=== PATIENT | female | born 1975 | race Two or more races ===

== ENCOUNTER 2017-04-14 12:26 | Inpatient (IN) | payer OTHER ==
[2017-04-14 13:37] VITALS: BMI 17.3
--- NOTE | 2017-04-14 15:52 | HP ---
CIWA Score - CIWA Score Nausea/Vomitin Muscle Tremors: 4-Moderate,w/Arms Extend Anxiety: 4-Mod. Anxious/Guarded Agitation: 3 Paroxysmal Sweats: 3 Orientation: 0-Oriented Tacttile Disturbances: 2-Mild Itch/Numbness/Burn Auditory Disturbances: 0-None Visual Disturbances: 1-Very Mild Sensitivity Headache: 0-None Present CIWA-Ar Total Score: 22 Admission ROS S - HPI Chief Complaint: "I need some rest and to clear my head." Pt. is here to Detox from Alcohol. Allergies/Adverse Reactions: Allergies Allergy/AdvReac Type Severity Reaction Status Date / Time No Known Drug Allergies Allergy Verified 04/14/17 14:17 aspirin AdvReac Severe HEAVY Verified 04/14/17 14:17 MENSES Lactose Intolerant AdvReac Intermediate Nausea Uncoded 04/14/17 16:00 History of Present Illness: Pt. is a 41 YO female here to detox from Alcohol. Pt. has had 1 previous Detox admission and 1 previous Rehab admission at [facility] in the past. Longest recent period of sobriety: 1 year (@ age 36). Exam Limitations: No Limitations - Ebola screening Have you traveled outside of the country in the last 21 days: No Have you had contact with anyone from an Ebola affected area: No Have you been sick,other than usual withdrawal symptoms: No Do you have a fever: No - Review of Systems Constitutional: Chills, Diaphoresis, Fever, Loss of Appetite, Malaise, Night Sweats, Changes in sleep, Unintentional Wgt. Loss (Weight tends to fluctuate.) EENT: reports: Blurred Vision, Tearing, Hearing Loss (Partial in left ear.), Tinnitus (Left ear.), Nose Congestion, Sinus Pressure, Dental Problems (Cavities ; [place] tooth that needs to be removed.) Respiratory: reports: SOB with Exertion (Occasional.), Productive cough Cardiac: reports: Palpitations GI: reports: Diarrhea, Nausea, Poor Appetite, Vomiting, Indigestion, Abdominal cramping : reports: Frequency Musculoskeletal: reports: Back Pain, Joint Pain, Muscle Pain, Neck Pain, Joint Stiffness Integumentary: reports: No Symptoms Reported Neuro: reports: Numbness (Bilateral hands.), Seizure (Due to ETOH withdrawal; last episode: approx. 1 year ago.), Tingling (Bilateral hands.), Tremors Endocrine: reports: No Symptoms Reported Hematology: reports: Anemia (Iron-Deficieny Type.), Easy Bruising Psychiatric: reports: Judgement Intact, Mood/Affect Appropiate, Orientated x3, Anxious, Depressed (On meds.), other (Bipolar disorder, ADD, Schizophrenia.) Other Systems: Reviewed and Negative Patient History - Patient Medical History Hx Anemia: Yes (TAKES MULTIVITAMINS WITH IRON.) Hx Asthma: Yes (Uses Albuterol Inhaler.) Hx Chronic Obstructive Pulmonary Disease (COPD): No Hx Cancer: No Hx Cardiac Disorders: Yes (HTN.) Hx Congestive Heart Failure: No Hx Hypertension: Yes (Non-Compliant meds.) Hx Hypercholesterolemia: No Hx Pacemaker: No HX Cerebrovascular Accident: Yes (IN 2002--TREATED AT [facility]) Hx Seizures: Yes (alcohol related-last episode was apporx. 1 year ago.) Hx Dementia: No Hx Diabetes: No Hx Gastrointestinal Disorders: No Hx Liver Disease: Yes (Cirrhosis.) Hx Genitourinary Disorders: No Hx Sexually Transmitted Disorders: No Hx Renal Disease (ESRD): No Hx Thyroid Disease: No Hx Human Immunodeficiency Virus (HIV): No (Last Tested approx. 1 year ago: NEGATIVE.) Hx Hepatitis C: No (Never Tested.) Hx Depression: Yes (On med.) Hx Suicide Attempt: No (PATIENT DENIES CURRENT SI / HI.) Hx Bipolar Disorder: Yes (On med.) Hx Schizophrenia: Yes (On med.) Other Medical History: Hep B (years ago, pt reports she since cleared virus); Uterine Fibroids. - Patient Surgical History Past Surgical History: Yes Hx Neurologic Surgery: No Hx Cataract Extraction: No Hx Cardiac Surgery: No Hx Lung Surgery: No Hx Breast Surgery: No Hx Breast Biopsy: No Hx Abdominal Surgery: No Hx Appendectomy: No Hx Cholecystectomy: No Hx Genitourinary Surgery: No Hx Section: No Hx Orthopedic Surgery: No Other Surgical History: Removal of Uterine Fibroid - 2013; 2 Abortions (during 20's). Anesthesia Reaction: No - PPD History Previous Implant?: Yes Documented Results: Negative w/proof Implanted On Prior [facility] Admission?: Yes Date: 12/27/14 Results: 0 mm PPD to be Administered?: Yes - Reproductive History Patient is a Female of Child Bearing Age (11 -55 yrs old): Yes Last Menstrual Period: 03/13/17 Patient : No - Smoking Cessation Smoking history: Current every day smoker Have you smoked in the past 12 months: Yes Aproximately how many cigarettes per day: 5 Cigars Per Day: 0 Hx Chewing Tobacco Use: No Initiated information on smoking cessation: Yes 'Breaking Loose' booklet given: 04/14/17 (GIVE ON UNIT.) - Substance & Tx. History Hx Alcohol Use: Yes Hx Substance Use: Yes Substance Use Type: Alcohol, Cocaine Hx Substance Use Treatment: Yes (1 Previous Detox admission, 1 Previous Rehab admission at [facility].) - Substances Abused Cocaine Route: Inhalation Frequency: Daily Amount used: $100 Age of first use: 17 Date of Last Use: 04/12/17 Alcohol-beer/vodka Route: Oral Frequency: Daily Amount used: 1-6 pk. (24 oz.)/2 pts. Age of first use: 14 Date of Last Use: 04/13/17 Family Disease History - Family Disease History Family Disease History: Heart Disease: Mother (OPEN HEART SX, SUBSTANCE ABUSE. .), CA: Grandparent (BREAST--), Other: Father (AIDS; SUBSTANCE ABUSE; .), Mother Admission Physical Exam S - Vital Signs Vital Signs: Vital Signs - 24 hr 04/14/17 13:35 Temperature 99.6 F Pulse Rate 110 H Respiratory 16 Rate Blood Pressure 123/83 - Physical General Appearance: Yes: Nourished, Appropriately Dressed, Moderate Distress, Tremorous, Irritable, Anxious HEENTM: Yes: Hearing grossly Normal, Normocephalic, Normal Voice, ARMAND, Pharynx Normal Respiratory: Yes: Chest Non-Tender, Lungs Clear, No Respiratory Distress Neck: Yes: No masses,lesions,Nodules, Supple, Trachea in good position Breast: Yes: Breast Exam Deferred Cardiology: Yes: Regular Rhythm, Regular Rate, S1, S2, Tachycardia Abdominal: Yes: Normal Bowel Sounds, Non Tender, Flat, Soft Genitourinary: Yes: Frequency Back: Yes: Decreased Range of Motion Musculoskeletal: Yes: Gait Steady, Back pain, Joint Stiffness, Muscle Pain Extremities: Yes: Tremors 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: Yes: Fully Oriented, Alert, Normal Mood/Affect, Normal Response, Numbness (Bilateral Hands.) Integumentary: Yes: Normal Color, Dry, Warm Lymphatic: Yes: Within Normal Limits - Diagnostic (1) Asthma Current Visit: Yes Status: Chronic (2) HTN (hypertension) Current Visit: Yes Status: Chronic Qualifiers: Hypertension type: essential hypertension Qualified Code(s): I10 - Essential (primary) hypertension (3) Nicotine dependence Current Visit: Yes Status: Chronic Qualifiers: Nicotine product type: cigarettes Substance use status: uncomplicated Qualified Code(s): F17.210 - Nicotine dependence, cigarettes, uncomplicated (4) Alcohol dependence with uncomplicated withdrawal Current Visit: Yes Status: Acute (5) Cocaine dependence, uncomplicated Current Visit: Yes Status: Acute (6) History of seizure Current Visit: Yes Status: Chronic Comment: Due to Alcohol-withdrawal. (7) History of uterine fibroid Current Visit: Yes Status: Chronic (8) History of anemia Current Visit: Yes Status: Chronic (9) Bipolar disorder Current Visit: Yes Status: Chronic Qualifiers: Active/Remission status: remission status unspecified Qualified Code (s): F31.9 - Bipolar disorder, unspecified (10) Schizophrenia Current Visit: Yes Status: Chronic Qualifiers: Schizophrenia type: unspecified Qualified Code(s): F20.9 - Schizophrenia, unspecified Cleared for Admission [facility] - Detox or Rehab [facility] Level of Care: Medically Managed Detox Regimen/Protocol: Librium [facility] Breath Alcohol Content Breath Alcohol Content: 0.068 Urine Pregancy Test - Result Urine Test Results: Negative- NO Line Present Urine Drug Screen - Results Drug Screen Negative: No Urine Drug Screen Results: BZO-Benzodiazepines
[2017-04-14] MEDS ORDERED: MAGNESIUM HYDROX 2400MG/30ML ORAL SUSPENSION 30 ML CUP PO PRN (16:40)
[2017-04-14] MEDS ORDERED: ACETAMINOPHEN 325 MG TABLET (FP) PO PRN (16:40)
[2017-04-14] MEDS ORDERED: MENTHOL/PHENOL 1 EACH UD MM PRN (16:40)
[2017-04-14] MEDS ORDERED: diphenhydrAMINE HCL 50 MG CAPSULE PO PRN (16:40)
[2017-04-14] MEDS ORDERED: NICOTINE POLACRILEX 2 MG GUM BC PRN (16:40)
[2017-04-14] MEDS ORDERED: guaiFENesin/D-METHORPHAN HB 10 ML UNIT-DOSE CUPS PO PRN (16:40)
[2017-04-14] MEDS ORDERED: P-EPHED 60MG/TRIPROLIDI 2.5MG TABLET PO PRN (16:40)
[2017-04-14] MEDS ORDERED: MAGNESIUM CITRATE 300 ML BOTTLE PO PRN (16:40)
[2017-04-14] MEDS ORDERED: MAG HYDROX/AL HYDROX/SIMETH 30 ML UNIT-DOSE CUP PO PRN (16:40)
[2017-04-14] MEDS ORDERED: ALBUTEROL SO4 6.7 GM HFA INHALER IH PRN (16:51)
[2017-04-14] MEDS ORDERED: chlordiazePOXIDE HCL 25 MG CAPSULE PO ONE (17:30)
[2017-04-14] MEDS: cloNIDine HCL 0.1 MG TABLET PO SCH (17:32)
[2017-04-14] MEDS: NICOTINE 14 MG/24 HOURS TOPICAL PATCH TD SCH (17:36)
[2017-04-14] MEDS: chlordiazePOXIDE HCL 25 MG CAPSULE PO SCH ×2 (17:37→22:34)
[2017-04-14] MEDS: THIAMINE HCL 100 MG TABLET (FP) PO SCH (22:33)
[2017-04-15 02:34] LABS: URINE APPEARANCE CLEAR; URINE BILIRUBIN NEGATIVE (NEGATIVE); URINE BLOOD NEGATIVE (NEGATIVE); URINE COLOR YELLOW; URINE GLUCOSE (UA) NEGATIVE (NEGATIVE); URINE KETONE NEGATIVE (NEGATIVE); URINE LEUK ESTERASE NEGATIVE (NEGATIVE); URINE NITRITE NEGATIVE (NEGATIVE); URINE PROTEIN NEGATIVE (NEGATIVE); URINE UROBILINOGEN NEGATIVE E.U./dl (0.2-1.0)
[2017-04-15] MEDS: chlordiazePOXIDE HCL 25 MG CAPSULE PO SCH ×4 (05:56→22:13)
--- NOTE | 2017-04-15 09:32 | CONSULT ---
[facility] Psychiatric Consult - Data Date of interview: 04/15/17 Admission source: [facility] Identifying data: This is 41 years old female with history of Bipollar disorder , unclear psychiatric hospitalization history intoxicated with: Alcohol, Cocaine and Nicotine Substance Abuse History: - Substance & Tx. History. Hx Alcohol Use: Yes. Hx Substance Use: Yes. Substance Use Type: Alcohol, Cocaine. Hx Substance Use Treatment: Yes (1 Previous Detox admission, 1 Previous Rehab admission at [facility].) . - Substances Abused. Cocaine. Route: Inhalation. Frequency: Daily. Amount used: $100. Age of first use: 17. Date of Last Use: 04/12/17. Alcohol-beer/vodka. Route: Oral. Frequency: Daily. Amount used: 1-6 pk. (24 oz.)/2 pts. Age of first use: 14. Date of Last Use: 04/13/17 Medical History: Asthma, Anemia history, Seizure history, HTN Psychiatric History: Patiemnt reports history of Bipolar Disorder, reports taking prior to admission: Seroquel 300mg po qhs. Vistaril 25mg po bid. 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 Vistaril 25mg po bid Mental Status Exam - Mental Status Exam Alert and Oriented to: Person Cognitive Function: Fair Patient Appearance: Unkempt Mood: Sad Affect: Mood Congruent Patient Behavior: Cooperative Voice Loudness: Mildly Soft/Quiet Thought Process: Circumstantial Thought Disorder: Being Controlled Hallucinations: Denies Suicidal Ideation: Denies Homicidal Ideation: Denies Insight/Judgement: Fair Sleep: Difficulty falling asleep Appetite: Weight loss Muscle strength/Tone: Mild Hypotonicity Gait/Station: Shuffling Additional Comments: Seroquel 300mg po qhs. Vistaril 25mg po bid Psychiatric Findings - Problem List ([place] 1, 2,3) (1) Alcohol dependence with uncomplicated withdrawal Current Visit: Yes Status: Acute (2) Cocaine dependence, uncomplicated Current Visit: Yes Status: Acute (3) Bipolar disorder Current Visit: Yes Status: Chronic Qualifiers: Active/Remission status: remission status unspecified Qualified Code (s): F31.9 - Bipolar disorder, unspecified (4) History of seizure Current Visit: Yes Status: Chronic Comment: Due to Alcohol-withdrawal. (5) Schizophrenia Current Visit: Yes Status: Suspected Qualifiers: Schizophrenia type: unspecified Qualified Code(s): F20.9 - Schizophrenia, unspecified (6) Alcohol dependence Current Visit: No Status: Active (7) Cocaine dependence Current Visit: No Status: Active (8) Bipolar II disorder Current Visit: No Status: Acute - Initial Treatment Plan Initial Treatment Plan: Seroquel 300mg po qhs. Vistaril 25mg po bid
--- NOTE | 2017-04-15 09:39 | PN ---
[facility] CIWA - CIWA Score Nausea/Vomitin Muscle Tremors: 3 Anxiety: 3 Agitation: 2 Paroxysmal Sweats: 3 Orientation: 0-Oriented Tacttile Disturbances: 2-Mild Itch/Numbness/Burn Auditory Disturbances: 0-None Visual Disturbances: 0-None Headache: 0-None Present CIWA-Ar Total Score: 16 [facility] Progress Note (SOAP) Subjective: interrupted sleep, sweats, shakes, diarrhea Objective: 04/15/17 09:39 Vital Signs Temperature 99.0 F 04/15/17 06:00 Pulse Rate 71 04/15/17 06:00 Respiratory Rate 16 04/15/17 06:00 Blood Pressure 135/89 04/15/17 06:00 O2 Sat by Pulse Oximetry (%) Laboratory Tests 04/15/17 00:26 Urine Color Yellow Urine Appearance Clear Urine pH 5.0 Urine Protein Negative Urine Glucose (UA) Negative Urine Ketones Negative Urine Blood Negative Urine Nitrite Negative Urine Bilirubin Negative Urine Urobilinogen Negative Ur Leukocyte Esterase Negative 04/15/17 12:25 Laboratory Tests 04/14/17 04/15/17 04/15/17 06:00 00:26 06:00 WBC 3.3 L D RBC 3.89 Hgb 12.2 Hct 37.0 MCV 95.2 MCHC 33.1 RDW 13.7 Plt Count 194 MPV 9.0 Sickle Cell Screen Negative Sodium Potassium Chloride Carbon Dioxide Anion Gap BUN Creatinine Creat Clearance w eGFR Random Glucose Calcium Total Bilirubin AST ALT Alkaline Phosphatase Total Protein Albumin Urine Color Yellow Urine Appearance Clear Urine pH 5.0 Ur Specific [place] 1.025 Urine Protein Negative Urine Glucose (UA) Negative Urine Ketones Negative Urine Blood Negative Urine Nitrite Negative Urine Bilirubin Negative Urine Urobilinogen Negative Ur Leukocyte Esterase Negative RPR Titer HIV 1&2 Antibody Screen Negative HIV P24 Antigen Negative 04/15/17 04/15/17 06:00 06:00 WBC RBC Hgb Hct MCV MCHC RDW Plt Count MPV Sickle Cell Screen Sodium 139 Potassium 3.8 Chloride 102 Carbon Dioxide 29 Anion Gap 8 BUN 6 L D Creatinine 0.5 L D Creat Clearance w eGFR > 60 Random Glucose 67 L Calcium 8.8 Total Bilirubin 0.8 D AST 159 H D ALT 52 D Alkaline Phosphatase 102 D Total Protein 8.5 H Albumin 3.6 Urine Color Urine Appearance Urine pH Ur Specific [place] Urine Protein Urine Glucose (UA) Urine Ketones Urine Blood Urine Nitrite Urine Bilirubin Urine Urobilinogen Ur Leukocyte Esterase RPR Titer Nonreactive HIV 1&2 Antibody Screen HIV P24 Antigen pt aox3 lying in bed Assessment: 04/15/17 09:39 withdrawal sx's elevated transaminases 04/15/17 12:26 Plan: cont. detox increase fluids d/c tylenol repeat sgot/sgpt imodium prn
[2017-04-15] MEDS: cloNIDine HCL 0.1 MG TABLET PO SCH (10:10)
[2017-04-15] MEDS: PRENATAL VITAMINS W/ FOLIC ACID TABLET (FP) PO SCH (10:10)
[2017-04-15] MEDS: hydrOXYzine PAMOATE 25 MG CAPSULE (FP) PO SCH ×2 (10:11→22:13)
[2017-04-15] MEDS: NICOTINE 14 MG/24 HOURS TOPICAL PATCH TD SCH (10:12)
[2017-04-15] MEDS: LOPERAMIDE HCL 2 MG CAPSULE PO PRN (10:13)
[2017-04-15 10:22] LABS: MCH 31.5 pg (25.7-33.7); MCHC 33.1 g/dl (32.0-36.0); MEAN CELL VOLUME 95.2 fl (80-96); PLATELET COUNT 194 K/MM3 (134-434); RDW 13.7 % (11.6-15.6); WHITE BLOOD COUNT 3.3 K/mm3 (4.0-10.0)
[2017-04-15 10:41] LABS: HIV 1 & 2 AB NEGATIVE; HIV 1 AGp24 NEGATIVE
[2017-04-15 10:49] LABS: ALBUMIN 3.6 g/dl (3.4-5.0); ANION GAP 8 (8-16); CALCIUM 8.8 mg/dL (8.5-10.1); CO2 29 mmol/L (21-32); GLUCOSE,RANDOM 67 mg/dL (74-106)
[2017-04-15 10:54] LABS: ALK PHOS 102 U/L (45-117); BILIRUBIN,TOTAL 0.8 mg/dL (0.2-1.0); CREATININE 0.5 mg/dL (0.55-1.02); SGOT/AST 159 U/L (15-37); SGPT/ALT 52 U/L (12-78); TOT PROT 8.5 g/dl (6.4-8.2)
[2017-04-15 11:00] LABS: SICKLE CELL SCREEN NEGATIVE (NEGATIVE)
--- NOTE | 2017-04-15 15:51 | EKG ---
Test Reason : Blood Pressure : / mmHG Vent. Rate : 109 BPM Atrial Rate : 109 BPM P-R Int : 132 ms QRS Dur : 072 ms QT Int : 334 ms P-R-T Axes : 069 020 055 degrees QTc Int : 449 ms SINUS TACHYCARDIA SEPTAL INFARCT , AGE UNDETERMINED ABNORMAL ECG NO PREVIOUS ECGS AVAILABLE Confirmed by FABIOLA SOLORIO MD ([id number]) on 04/15/2017 3:51:07 PM Referred By: Confirmed By:FABIOLA SOLORIO MD
[2017-04-15] MEDS: hydrOXYzine PAMOATE 50 MG CAPSULE (FP) PO PRN (16:05)
[2017-04-15] MEDS ORDERED: QUEtiapine FUMARATE 300 MG TABLET PO SCH (22:00)
[2017-04-15] MEDS: THIAMINE HCL 100 MG TABLET (FP) PO SCH (22:12)
[2017-04-16] MEDS: chlordiazePOXIDE HCL 25 MG CAPSULE PO PRN ×2 (01:25→14:47)
[2017-04-16] MEDS: chlordiazePOXIDE HCL 25 MG CAPSULE PO SCH ×2 (05:37→10:46)
[2017-04-16] MEDS: hydrOXYzine PAMOATE 50 MG CAPSULE (FP) PO PRN ×2 (07:25→14:47)
[2017-04-16 10:20] LABS: SGOT/AST 80 U/L (15-37); SGPT/ALT 41 U/L (12-78)
[2017-04-16] MEDS: cloNIDine HCL 0.1 MG TABLET PO SCH (10:46)
[2017-04-16] MEDS: hydrOXYzine PAMOATE 25 MG CAPSULE (FP) PO SCH ×2 (10:46→22:06)
[2017-04-16] MEDS: PRENATAL VITAMINS W/ FOLIC ACID TABLET (FP) PO SCH (10:46)
[2017-04-16] MEDS: NICOTINE 14 MG/24 HOURS TOPICAL PATCH TD SCH (10:46)
--- NOTE | 2017-04-16 14:35 | PN ---
[facility] Progress Note Note: Patient was seen today due to sedation from Seroquel 300 mg, reviewed the chart and medications with the patient, patient reports that she does not want to continue Seroquel and asked Ambien for sleep. Will d/c Seroquel, add Ambien 10 mg po hs.
--- NOTE | 2017-04-16 16:04 | PN ---
[facility] CIWA - CIWA Score Nausea/Vomitin-No Nausea/No Vomiting Muscle Tremors: 4-Moderate,w/Arms Extend Anxiety: 4-Mod. Anxious/Guarded Agitation: 3 Paroxysmal Sweats: 3 Orientation: 0-Oriented Tacttile Disturbances: 0-None Auditory Disturbances: 0-None Visual Disturbances: 0-None Headache: 0-None Present CIWA-Ar Total Score: 14 S Progress Note (SOAP) Subjective: Tremors,sweating,interrupted sleep,restless,anxiety Objective: 04/16/17 16:03 Vital Signs - 8 hr 04/16/17 04/16/17 10:00 14:00 Temperature 98.1 F 98.4 F Pulse Rate 110 H 99 H Respiratory 20 16 Rate Blood Pressure 117/72 96/73 Laboratory Last Values WBC 3.3 K/mm3 (4.0-10.0) L D 04/15/17 06:00 RBC 3.89 M/mm3 (3.60-5.2) 04/15/17 06:00 Hgb 12.2 GM/dL (10.7-15.3) 04/15/17 06:00 Hct 37.0 % (32.4-45.2) 04/15/17 06:00 MCV 95.2 fl (80-96) 04/15/17 06:00 MCHC 33.1 g/dl (32.0-36.0) 04/15/17 06:00 RDW 13.7 % (11.6-15.6) 04/15/17 06:00 Plt Count 194 K/MM3 (134-434) 04/15/17 06:00 MPV 9.0 fl (7.5-11.1) 04/15/17 06:00 Sickle Cell Screen Negative (NEGATIVE) 04/15/17 06:00 Sodium 139 mmol/L (136-145) 04/15/17 06:00 Potassium 3.8 mmol/L (3.5-5.1) 04/15/17 06:00 Chloride 102 mmol/L (98-107) 04/15/17 06:00 Carbon Dioxide 29 mmol/L (21-32) 04/15/17 06:00 Anion Gap 8 (8-16) 04/15/17 06:00 BUN 6 mg/dL (7-18) L D 04/15/17 06:00 Creatinine 0.5 mg/dL (0.55-1.02) L D 04/15/17 06:00 Creat Clearance w eGFR > 60 (>60) 04/15/17 06:00 Random Glucose 67 mg/dL (74-106) L 04/15/17 06:00 Calcium 8.8 mg/dL (8.5-10.1) 04/15/17 06:00 Total Bilirubin 0.8 mg/dL (0.2-1.0) D 04/15/17 06:00 AST 80 U/L (15-37) H D 04/16/17 07:00 ALT 41 U/L (12-78) D 04/16/17 07:00 Alkaline Phosphatase 102 U/L (45-117) D 04/15/17 06:00 Total Protein 8.5 g/dl (6.4-8.2) H 04/15/17 06:00 Albumin 3.6 g/dl (3.4-5.0) 04/15/17 06:00 Urine Color Yellow 04/15/17 00:26 Urine Appearance Clear 04/15/17 00:26 Urine pH 5.0 (5.0-8.0) 04/15/17 00:26 Ur Specific [place] 1.025 (1.005-1.025) 04/15/17 00:26 Urine Protein Negative (NEGATIVE) 04/15/17 00:26 Urine Glucose (UA) Negative (NEGATIVE) 04/15/17 00:26 Urine Ketones Negative (NEGATIVE) 04/15/17 00:26 Urine Blood Negative (NEGATIVE) 04/15/17 00:26 Urine Nitrite Negative (NEGATIVE) 04/15/17 00:26 Urine Bilirubin Negative (NEGATIVE) 04/15/17 00:26 Urine Urobilinogen Negative E.U./dl (0.2-1.0) 04/15/17 00:26 Ur Leukocyte Esterase Negative (NEGATIVE) 04/15/17 00:26 RPR Titer Nonreactive (NONREACTIVE) 04/15/17 06:00 HIV 1&2 Antibody Screen Negative 04/14/17 06:00 HIV P24 Antigen Negative 04/14/17 06:00 labs noted Assessment: 04/16/17 16:03 Withdrawal sx. Plan: Continue detox
[2017-04-16] MEDS: chlordiazePOXIDE 5 MG CAPSULE PO SCH ×2 (17:30→22:06)
[2017-04-16] MEDS: THIAMINE HCL 100 MG TABLET (FP) PO SCH (22:06)
[2017-04-16] MEDS: ZOLPIDEM TARTRATE 10 MG TABLET (PARK CARE ONLY) PO PRN (22:06)
[2017-04-17] MEDS: chlordiazePOXIDE HCL 25 MG CAPSULE PO PRN (02:57)
[2017-04-17] MEDS: chlordiazePOXIDE 5 MG CAPSULE PO SCH ×2 (05:18→10:21)
[2017-04-17] MEDS: hydrOXYzine PAMOATE 25 MG CAPSULE (FP) PO SCH ×2 (09:10→22:15)
[2017-04-17] MEDS: LOPERAMIDE HCL 2 MG CAPSULE PO PRN (09:13)
[2017-04-17] MEDS: cloNIDine HCL 0.1 MG TABLET PO SCH (10:20)
[2017-04-17] MEDS: PRENATAL VITAMINS W/ FOLIC ACID TABLET (FP) PO SCH (10:20)
[2017-04-17] MEDS: NICOTINE 14 MG/24 HOURS TOPICAL PATCH TD SCH (10:21)
--- NOTE | 2017-04-17 11:38 | PN ---
[facility] Progress Note (SOAP) Subjective: ALERT,IRRITABLE,ANXIOUS,INTERRUPTED SLEEP, Objective: 04/17/17 11:37 Vital Signs Temperature 98.6 F 04/17/17 10:21 Pulse Rate 97 H 04/17/17 10:21 Respiratory Rate 20 04/17/17 10:21 Blood Pressure 121/95 04/17/17 10:21 O2 Sat by Pulse Oximetry (%) 04/17/17 11:37 Assessment: 04/17/17 11:37 WITHDRAWAL SYMPTOM Plan: CONTINUE DETOX
[2017-04-17] MEDS: hydrOXYzine PAMOATE 50 MG CAPSULE (FP) PO PRN (13:25)
[2017-04-17] MEDS: chlordiazePOXIDE HCL 10 MG CAPSULE PO SCH ×2 (16:47→22:15)
[2017-04-17] MEDS: ZOLPIDEM TARTRATE 10 MG TABLET (PARK CARE ONLY) PO PRN (22:15)
[2017-04-17] MEDS: THIAMINE HCL 100 MG TABLET (FP) PO SCH (22:15)
[2017-04-18] MEDS: hydrOXYzine PAMOATE 50 MG CAPSULE (FP) PO PRN (02:20)
[2017-04-18] MEDS: chlordiazePOXIDE HCL 10 MG CAPSULE PO SCH (05:46)
[2017-04-18 06:03] VITALS: BP 117/75; PULSE 77; TEMP 97.1
[2017-04-18] MEDS: PRENATAL VITAMINS W/ FOLIC ACID TABLET (FP) PO SCH (09:03)
[2017-04-18] MEDS: hydrOXYzine PAMOATE 25 MG CAPSULE (FP) PO SCH (09:03)
[2017-04-18] MEDS: cloNIDine HCL 0.1 MG TABLET PO SCH (09:03)
[2017-04-18] MEDS: NICOTINE 14 MG/24 HOURS TOPICAL PATCH TD SCH (09:04)
--- NOTE | 2017-04-18 13:09 | DS ---
[facility] Detox Discharge Summary Admission Date: 04/14/17 Discharge Date: 04/18/17 - History Present History: Alcohol Dependence, Cocaine Dependence Additional Comments: ADVISED PATIENT TO FOLLOW-UP WITH [facility] / REHAB MEDICAL PROVIDER AFTER DISCHARGE FROM [facility]. Pertinent Past History: Asthma, HTN, History of Anemia, History of CVA, History of Seizure (ETOH-Related ), History of Hep B, Schizophrenia, Depression, Bipolar disorder. - Physical Exam Results Vital Signs: Vital Signs Temperature 97.1 F L 04/18/17 06:00 Pulse Rate 77 04/18/17 06:00 Respiratory Rate 20 04/18/17 06:00 Blood Pressure 117/75 04/18/17 06:00 O2 Sat by Pulse Oximetry (%) Pertinent Admission Physical Exam Findings: WITHDRAWAL SYMPTOMS. Laboratory Tests 04/14/17 04/15/17 04/15/17 06:00 00:26 06:00 WBC 3.3 L D RBC 3.89 Hgb 12.2 Hct 37.0 MCV 95.2 MCHC 33.1 RDW 13.7 Plt Count 194 MPV 9.0 Sickle Cell Screen Negative Sodium Potassium Chloride Carbon Dioxide Anion Gap BUN Creatinine Creat Clearance w eGFR Random Glucose Calcium Total Bilirubin AST ALT Alkaline Phosphatase Total Protein Albumin Urine Color Yellow Urine Appearance Clear Urine pH 5.0 Ur Specific [place] 1.025 Urine Protein Negative Urine Glucose (UA) Negative Urine Ketones Negative Urine Blood Negative Urine Nitrite Negative Urine Bilirubin Negative Urine Urobilinogen Negative Ur Leukocyte Esterase Negative RPR Titer HIV 1&2 Antibody Screen Negative HIV P24 Antigen Negative 04/15/17 04/15/17 04/16/17 06:00 06:00 07:00 WBC RBC Hgb Hct MCV MCHC RDW Plt Count MPV Sickle Cell Screen Sodium 139 Potassium 3.8 Chloride 102 Carbon Dioxide 29 Anion Gap 8 BUN 6 L D Creatinine 0.5 L D Creat Clearance w eGFR > 60 Random Glucose 67 L Calcium 8.8 Total Bilirubin 0.8 D AST 159 H D 80 H D ALT 52 D 41 D Alkaline Phosphatase 102 D Total Protein 8.5 H Albumin 3.6 Urine Color Urine Appearance Urine pH Ur Specific [place] Urine Protein Urine Glucose (UA) Urine Ketones Urine Blood Urine Nitrite Urine Bilirubin Urine Urobilinogen Ur Leukocyte Esterase RPR Titer Nonreactive HIV 1&2 Antibody Screen HIV P24 Antigen LABS NOTED. - Treatment Hospital Course: Detox Protocol Followed, Detoxed Safely, Responded well, Discharged Condition Good Patient has Accepted a Rehab Referral to: PATIENT GOING HOME. 12-STEP / AA OUTPATIENT PROGRAMS RECOMMENDED. - Medication Discharge Medications: Ambulatory Orders Ibuprofen [Motrin] 800 mg PO PRN PRN 10/10/13 Albuterol Sulfate Inhaler - [Ventolin Hfa Inhaler -] 2 inh PO Q4H PRN 04/14/17 Citalopram Hydrobromide [Celexa -] 20 mg PO DAILY 04/14/17 Clonidine HCl [Catapres -] 0.1 mg PO DAILY 04/14/17 Metoprolol Succinate [Toprol Xl -] 50 mg PO DAILY 04/14/17 Quetiapine Fumarate [Seroquel -] 300 mg PO HS 04/14/17 Quetiapine Fumarate [Seroquel -] 300 mg PO HS #30 tab 04/15/17 - Diagnosis (1) Asthma Status: Chronic (2) HTN (hypertension) Status: Chronic Qualifiers: Hypertension type: essential hypertension Qualified Code(s): I10 - Essential (primary) hypertension (3) Nicotine dependence Status: Chronic Qualifiers: Nicotine product type: cigarettes Substance use status: uncomplicated Qualified Code(s): F17.210 - Nicotine dependence, cigarettes, uncomplicated (4) Alcohol dependence with uncomplicated withdrawal Status: Acute (5) Cocaine dependence, uncomplicated Status: Acute (6) History of seizure Status: Chronic (7) History of uterine fibroid Status: Chronic (8) History of anemia Status: Chronic (9) Bipolar disorder Status: Chronic Qualifiers: Active/Remission status: remission status unspecified Qualified Code (s): F31.9 - Bipolar disorder, unspecified (10) Schizophrenia Status: Suspected Qualifiers: Schizophrenia type: unspecified Qualified Code(s): F20.9 - Schizophrenia, unspecified (11) Bipolar II disorder Status: Acute - AMA Did Patient Leave Against Medical Advice: No
== END 2017-04-18 09:28 | disposition home or self-care (01) | DRG 774 ==
LOC: YASAS 12:26 → Y6N 15:00
PROVIDERS: ADMIT Internal Medicine; ATTEND Internal Medicine
PROC: HZ2ZZZZ Detoxification Services for Substance Abuse Treatment (ICD-10-PCS; principal; 2017-04-18)
DX: F10.230 Alcohol dependence with withdrawal, uncomplicated (principal); F14.20 Cocaine dependence, uncomplicated; F17.210 Nicotine dependence, cigarettes, uncomplicated; F20.9 Schizophrenia, unspecified; F31.9 Bipolar disorder, unspecified; F31.81 Bipolar II disorder; G40.509 Epileptic seizures related to external causes, not intractable, without status epilepticus; I10 Essential (primary) hypertension; J45.909 Unspecified asthma, uncomplicated; Z87.42 Personal history of other diseases of the female genital tract; Z86.2 Personal history of diseases of the blood and blood-forming organs and certain disorders involving the immune mechanism; Z59.0 Homelessness
CPT/HCPCS: 36415; 80053; 81003; 84450; 84460; 85027; 85660; 86593; 87389; 93005; 93010

== ENCOUNTER 2018-02-09 19:53 | Emergency (ER) | payer OTHER ==
--- NOTE | 2018-02-09 20:00 | PDOC ---
Rapid Medical Evaluation Chief Complaint: Alcohol intoxication Time Seen by Provider: 02/09/18 19:59 Medical Evaluation: Allergies Allergy/AdvReac Type Severity Reaction Status Date / Time No Known Drug Allergies Allergy Verified 04/14/17 14:17 aspirin AdvReac Severe HEAVY Verified 04/14/17 14:17 MENSES lactose AdvReac Intermediate Nausea Verified 04/14/17 17:11 Lactose Intolerant AdvReac Intermediate Nausea Uncoded 04/14/17 16:00 02/09/18 19:59 I have performed a brief in-person evaluation of this patient. The patient presents with a chief complaint of: alcohol intox, sent in from [facility] Pertinent physical exam findings: intox, agitated, tachy to 120 I have ordered the following: labs The patient will proceed to the ED for further evaluation. Discharge Disposition - Diagnosis Alcohol dependence - Referrals - Patient Instructions - Post Discharge Activity
[2018-02-09 20:03] VITALS: BMI 22.3
[2018-02-09] MEDS ORDERED: PANTOPRAZOLE SODIUM 40 MG VIAL IVPUSH ONE (22:08)
[2018-02-09] MEDS ORDERED: FOLIC ACID INJECTION - 1 MG, THIAMINE HCL 100 MG, MULTIVIT INJECTION ADULT 10 ML in SOD... IVPB ONE (22:08)
--- NOTE | 2018-02-09 22:25 | PDOC ---
*Physical Exam - Vital Signs Last Vital Signs Temp Pulse Resp BP Pulse Ox 98.0 F 120 H 16 129/81 100 02/09/18 20:00 02/09/18 20:00 02/09/18 20:00 02/09/18 20:00 02/09/18 20:00 Medical Decision Making - Medical Decision Making 02/09/18 22:28 agree with care DILAN Miller *DC/Admit/Observation/Transfer Diagnosis at time of Disposition: Alcohol dependence - Referrals - Patient Instructions - Post Discharge Activity
[2018-02-09 23:53] LABS: URINE APPEARANCE CLOUDY; URINE BILIRUBIN NEGATIVE (<2.0 mg/dL); URINE BLOOD 3+ (NEGATIVE); URINE COLOR LTYELLOW; URINE GLUCOSE (UA) NEGATIVE (NEGATIVE); URINE KETONE NEGATIVE (NEGATIVE); URINE LEUK ESTERASE NEGATIVE (NEGATIVE); URINE NITRITE POSITIVE (NEGATIVE); URINE PROTEIN 1+ (NEGATIVE); URINE UROBILINOGEN NEGATIVE mg/dL (0.2-1.0)
[2018-02-09 23:56] LABS: EPI CELLS RARE /HPF (FEW); URINE BACTERIA MODERATE /hpf (NONE SEEN)
[2018-02-09 23:57] LABS: AMORP URATES FEW /hpf (NONE SEEN)
[2018-02-10 00:29] LABS: HCG,QUALITATIVE URINE INDETERMINATE
[2018-02-10 00:48] LABS: BASO % 0.8 % (0-2.0); HEMATOCRIT 36.9 % (32.4-45.2); HEMOGLOBIN 12.6 GM/dL (10.7-15.3); LYMPH % 52.3 % (8-40); MCH 30.7 pg (25.7-33.7); MCHC 34.1 g/dl (32.0-36.0); MEAN CELL VOLUME 90.1 fl (80-96); MEAN PLT VOLUME 7.9 fl (7.5-11.1); MONO % 12.5 % (3.8-10.2); NEUT % 33.4 % (42.8-82.8); PLATELET COUNT 167 K/MM3 (134-434); WHITE BLOOD COUNT 2.7 K/mm3 (4.0-10.0)
[2018-02-10 01:12] LABS: ALBUMIN 3.6 g/dl (3.4-5.0); ANION GAP 11 (8-16); BILIRUBIN,TOTAL 0.2 mg/dL (0.2-1.0); BLOOD UREA NITROGEN 6 mg/dL (7-18); CALCIUM 8.2 mg/dL (8.5-10.1); CHLORIDE 105 mmol/L (98-107); CO2 27 mmol/L (21-32); CREATININE 0.6 mg/dL (0.55-1.02); GLUCOSE,RANDOM 126 mg/dL (74-106); POTASSIUM 3.5 mmol/L (3.5-5.1); SGOT/AST 220 U/L (15-37); SGPT/ALT 61 U/L (12-78); SODIUM 143 mmol/L (136-145); TOT PROT 9.2 g/dl (6.4-8.2)
[2018-02-10 01:13] LABS: LIPASE 226 U/L (73-393)
[2018-02-10 01:15] LABS: ALK PHOS 108 U/L (45-117)
--- NOTE | 2018-02-10 01:29 | PDOC ---
History of Present Illness - General Chief Complaint: Alcohol intoxication Stated Complaint: INTOX Time Seen by Provider: 02/09/18 19:59 History Source: Patient - History of Present Illness Initial Comments: 02/10/18 05:18 42-year-old female sent from [facility] for alcohol intoxication, agitation and tachycardia. Patient reports that she drank wine and vodka last night however drinks every day. Patient denies any drugs use at this time. patient is disheveled breath smelling of alcohol. Past History - Past Medical History Allergies/Adverse Reactions: Allergies Allergy/AdvReac Type Severity Reaction Status Date / Time No Known Drug Allergies Allergy Verified 02/09/18 20:04 aspirin AdvReac Severe HEAVY Verified 02/09/18 20:04 MENSES lactose AdvReac Intermediate Nausea Verified 02/09/18 20:04 Lactose Intolerant AdvReac Intermediate Nausea Uncoded 02/09/18 20:04 Home Medications: Ambulatory Orders Ibuprofen [Motrin] 800 mg PO PRN PRN 10/10/13 Albuterol Sulfate Inhaler - [Ventolin Hfa Inhaler -] 2 inh PO Q4H PRN 04/14/17 Citalopram Hydrobromide [Celexa -] 20 mg PO DAILY 04/14/17 Metoprolol Succinate [Toprol Xl -] 50 mg PO DAILY 04/14/17 Quetiapine Fumarate [Seroquel -] 300 mg PO HS 04/14/17 cloNIDine HCL [Catapres -] 0.1 mg PO DAILY 04/14/17 Quetiapine Fumarate [Seroquel -] 300 mg PO HS #30 tab 04/15/17 Nitrofurantoin Monohyd/M-Cryst [Macrobid -] 100 mg PO BID #14 capsule 02/10/18 Anemia: Yes (TAKES MULTIVITAMINS WITH IRON.) Asthma: Yes (Uses Albuterol Inhaler.) Cancer: No Cardiac Disorders: Yes (HTN.) CVA: Yes (IN 2002--TREATED AT [facility]) COPD: No CHF: No DVT: No Dementia: No Diabetes: No GI Disorders: No Disorders: No HTN: Yes (Non-Compliant meds.) Hypercholesterolemia: No Kidney Stones: No Liver Disease: Yes (Cirrhosis.) Seizures: Yes (alcohol related-last episode was apporx. 1 year ago.) Thyroid Disease: No - Surgical History Abdominal Surgery: No Appendectomy: No Cardiac Surgery: No Cholecystectomy: No Lung Surgery: No Neurologic Surgery: No Orthopedic Surgery: No - Reproductive History PID: No - Immunization History Immunization Up to Date: Yes - Suicide/Smoking/Psychosocial Hx Smoking History: Never smoked Have you smoked in the past 12 months: Yes Number of Cigarettes Smoked Daily: 5 Cigars Per Day: 0 Information on smoking cessation initiated: No 'Breaking Loose' booklet given: 04/14/17 Hx Alcohol Use: Yes Drug/Substance Use Hx: Yes (cocaine) Substance Use Type: Alcohol, Cocaine Hx Substance Use Treatment: Yes (1 Previous Detox admission, 1 Previous Rehab admission at [facility].) Review of Systems - Review of Systems Able to Perform ROS?: Yes Is the patient limited Honduran proficient: No Constitutional: No: Symptoms Reported, See HPI, Chills, Diaphoresis, Fever, Loss of Appetite, Malaise, Night Sweats, Weakness, Weight Stable, Unintentional Wgt. Loss, Unexplained wgt Loss, Other 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: No: Symptoms reported, See HPI, Headache, Numbness, Paresthesia, Pre-Existing Deficit, Seizure, Tingling, Tremors, Weakness, Unsteady Gait, Ataxia, Dizziness, Other Psychiatric: Yes: Mood Swings. No: Anxiety, Depression, Frequent Crying, Stressors, Sleep Pattern Change, Emotional Problems, Change in Appetite, Other *Physical Exam - Vital Signs Last Vital Signs Temp Pulse Resp BP Pulse Ox 98.0 F 120 H 16 129/81 100 02/09/18 20:00 02/09/18 20:00 02/09/18 20:00 02/09/18 20:00 02/09/18 20:00 - Physical Exam General Appearance: Yes: Appropriately Dressed HEENT: positive: Other (normocephalic no evidence of injury) Gastrointestinal/Abdominal: positive: Normal Bowel Sounds, Other (generalized tenderness) Musculoskeletal: positive: Normal Inspection Extremity: positive: Normal Capillary Refill, Normal Inspection, Normal Range of Motion Integumentary: positive: Normal Color, Dry, Warm Neurologic: positive: Alert, Other (slurred speech) ED Treatment Course - LABORATORY CBC & Chemistry Diagram: 02/10/18 00:30 02/10/18 00:30 - ADDITIONAL ORDERS Additional order review: Laboratory Results 02/10/18 02/10/18 02/09/18 00:30 00:30 23:45 Sodium 143 Potassium 3.5 Chloride 105 Carbon Dioxide 27 Anion Gap 11 BUN 6 L Creatinine 0.6 Creat Clearance w eGFR > 60 Random Glucose 126 H Calcium 8.2 L Total Bilirubin 0.2 D AST 220 H ALT 61 Alkaline Phosphatase 108 Total Protein 9.2 H Albumin 3.6 Lipase 226 Beta HCG, Quant < 1.0 Urine Color Ltyellow Urine Appearance Cloudy Urine pH 5.0 Ur Specific [place] 1.004 Urine Protein 1+ H Urine Glucose (UA) Negative Urine Ketones Negative Urine Blood 3+ H Urine Nitrite Positive Urine Bilirubin Negative Urine Urobilinogen Negative Ur Leukocyte Esterase Negative Urine WBC (Auto) 2 Urine RBC (Auto) 12 Ur Epithelial Cells Rare Amorphous Urates Few Urine Bacteria Moderate Urine HCG, Qual Indeterminate Alcohol, Quantitative 359.79 H* 02/10/18 00:30 RBC 4.10 MCV 90.1 MCHC 34.1 RDW 13.0 MPV 7.9 D Neutrophils % 33.4 L Lymphocytes % 52.3 H Monocytes % 12.5 H Eosinophils % 1.0 Basophils % 0.8 - Medications Given in the ED: ED Medications Discontinued Medications Generic Name Dose Route Start Last Admin Trade Name Freq PRN Reason Stop Dose Admin Pantoprazole Sodium 40 mg 02/09/18 22:08 02/10/18 00:59 Protonix Iv IVPUSH 02/09/18 22:09 Not Given ONCE ONE Medical Decision Making - Medical Decision Making 02/10/18 05:21 A; alcohol intoxication; UTI P; cbc cmp ua; + nitrite moderate bacteria. patient reports some urinary symptoms. will empirically treat./ 02/10/18 05:25 V/s : b/p 126/ 87, o2 sat 95% HR111, resp 18, temp 98.2. patient awake agitated. danteky will give librium and reevaluate. 02/10/18 06:21 I spoke to DILAN Leon at [facility]. recommends sending patient at 8 am when staff is available. patient to be transported back to [place] with security, 02/10/18 06:33 *DC/Admit/Observation/Transfer Diagnosis at time of Disposition: Alcohol dependence UTI (urinary tract infection) Qualifiers: Urinary tract infection type: acute cystitis Hematuria presence: without hematuria Qualified Code(s): N30.00 - Acute cystitis without hematuria - Prescriptions Prescriptions: Nitrofurantoin Monohyd/M-Cryst [Macrobid -] 100 mg PO BID #14 capsule - Referrals - Patient Instructions Printed Discharge Instructions: DI for Alcohol Abuse Additional Instructions: refrain from drinking alcohol take macrobid as prescribed. - Post Discharge Activity
[2018-02-10] MEDS ORDERED: chlordiazePOXIDE HCL 25 MG CAPSULE PO ONE (05:13)
[2018-02-10] MEDS ORDERED: chlordiazePOXIDE HCL 25 MG CAPSULE ONE (05:23)
[2018-02-10] MEDS ORDERED: NITROFURANTOIN MACROCRYSTAL 50 MG CAPSULE (FP) PO SCH (05:30)
[2018-02-10] MEDS ORDERED: NITROFURANTOIN MACROCRYSTAL 50 MG CAPSULE (FP) ONE (06:57)
[2018-02-10 07:01] VITALS: BP 131/79; PULSE 110; TEMP 98.8
== END 2018-02-10 08:15 | disposition home or self-care (01) ==
LOC: JER 19:53
DX: F10.220 Alcohol dependence with intoxication, uncomplicated (principal); Y90.8 Blood alcohol level of 240 mg/100 ml or more; N30.00 Acute cystitis without hematuria; I10 Essential (primary) hypertension; D64.9 Anemia, unspecified; J45.909 Unspecified asthma, uncomplicated; K74.60 Unspecified cirrhosis of liver; Z86.69 Personal history of other diseases of the nervous system and sense organs; Z86.73 Personal history of transient ischemic attack (TIA), and cerebral infarction without residual deficits
CPT/HCPCS: 36415; 80053; 80307; 81003; 81015; 83690; 84702; 84703; 85025; 87086; 87186; 99283-25; J7030

== ENCOUNTER 2018-02-10 08:59 | Inpatient (IN) | payer OTHER ==
[2018-02-10 10:10] VITALS: BMI 21.2
--- NOTE | 2018-02-10 11:35 | HP ---
"CIWA Score - CIWA Score Nausea/Vomitin Muscle Tremors: 3 Anxiety: 3 Agitation: 3 Paroxysmal Sweats: 3 Orientation: 0-Oriented Tacttile Disturbances: 1-Very Mild Itch/Numbness Auditory Disturbances: 0-None Visual Disturbances: 0-None Headache: 1-Very Mild CIWA-Ar Total Score: 17 Admission ROS S - [facility] Chief Complaint: alcohol withdrawal sx Allergies/Adverse Reactions: Allergies Allergy/AdvReac Type Severity Reaction Status Date / Time No Known Drug Allergies Allergy Verified 02/09/18 20:04 aspirin AdvReac Severe HEAVY Verified 02/09/18 20:04 MENSES lactose AdvReac Intermediate Nausea Verified 02/09/18 20:04 Lactose Intolerant AdvReac Intermediate Nausea Uncoded 02/09/18 20:04 History of Present Illness: Homar Cooper | Reference #: [id number] Others' Prescriptions Patient Name: Yasmin Chang Date: 1975 Address: [address] [place] [address] Sex: Female Rx Written Rx Dispensed Drug Quantity Days Supply Prescriber Name 11/16/2017 11/19/2017 chlordiazepoxide 25 mg capsule 20 5 Miguel, Judy DO 05/06/2017 05/07/2017 zolpidem tartrate 10 mg tablet 30 30 Du Ackerman MD 42 yo f with h/o chronic alcoholism, nirmal has been at [facility] several ties fo [facility], requesting inpateient detoxifcation becasue of withdrawl sx. last niht went to ED becasue of intoxication, started having withdaswl sx, was sent back to day for admission. PMHX ho of withdrawal sx, fibroids, anxiety, depression and insomnia reports DTS/hallucinations when withdrawing in past. no si at this tie. Exam Limitations: No Limitations - Ebola screening Have you traveled outside of the country in the last 21 days: No (N) Have you had contact with anyone from an Ebola affected area: No Have you been sick,other than usual withdrawal symptoms: No Do you have a fever: No - Review of Systems Constitutional: Chills, Diaphoresis, Changes in sleep, Weight Stable EENT: reports: No Symptoms Reported, Eye Pain (2/2 head injury 2months ago) Respiratory: reports: Cough (smokers), Wheezing Cardiac: reports: No Symptoms Reported GI: reports: Constipated, Diarrhea, Nausea, Poor Appetite, Poor Fluid Intake, Indigestion, Abdominal cramping : reports: No Symptoms Reported Musculoskeletal: reports: Other Integumentary: reports: Flushing, Sweating Neuro: reports: Headache, Numbness, Seizure (withdraal seizures 2 weeks ago , hit her head), Tingling, Tremors Endocrine: reports: Increased Thirst Hematology: reports: No Symptoms Reported Psychiatric: reports: Judgement Intact, Mood/Affect Appropiate, Orientated x3, Anxious, Depressed Patient History - Patient Medical History Hx Anemia: Yes (TAKES MULTIVITAMINS WITH IRON.) Hx Asthma: Yes (Uses Albuterol Inhaler.) Hx Chronic Obstructive Pulmonary Disease (COPD): No Hx Cancer: No Hx Cardiac Disorders: Yes (HTN.) Hx Congestive Heart Failure: No Hx Hypertension: Yes (Non-Compliant meds.) Hx Hypercholesterolemia: No Hx Pacemaker: No HX Cerebrovascular Accident: Yes (IN 2002--TREATED AT [facility]) Hx Seizures: Yes (alcohol related-last episode was apporx. 1 weel ago.) Hx Dementia: No Hx Diabetes: No Hx Gastrointestinal Disorders: No Hx Liver Disease: Yes (Cirrhosis.) Hx Genitourinary Disorders: No Hx Sexually Transmitted Disorders: No Hx Renal Disease (ESRD): No Hx Thyroid Disease: No Hx Human Immunodeficiency Virus (HIV): No (Last Tested approx. 1 year ago: NEGATIVE.) Hx Hepatitis C: No (Never Tested.) Hx Depression: Yes Hx Suicide Attempt: No (PATIENT DENIES CURRENT SI / HI.) Hx Bipolar Disorder: Yes (On med.) Hx Schizophrenia: Yes - Patient Surgical History Past Surgical History: Yes Hx Neurologic Surgery: No Hx Cataract Extraction: No Hx Cardiac Surgery: No Hx Lung Surgery: No Hx Breast Surgery: No Hx Breast Biopsy: No Hx Abdominal Surgery: No Hx Appendectomy: No Hx Cholecystectomy: No Hx Genitourinary Surgery: No Hx Section: No Hx Orthopedic Surgery: No Other Surgical History: Removal of Uterine Fibroid - 2013; 2 Abortions (during 20's). Anesthesia Reaction: No - PPD History Previous Implant?: Yes Date: 04/16/17 Results: 0 mm PPD to be Administered?: No - Reproductive History Patient is a Female of Child Bearing Age (11 -55 yrs old): Yes Last Menstrual Period: 02/10/18 Patient : No - Smoking Cessation Smoking history: Never smoked Have you smoked in the past 12 months: Yes Aproximately how many cigarettes per day: 10 Cigars Per Day: 0 Hx Chewing Tobacco Use: No Initiated information on smoking cessation: Yes 'Breaking Loose' booklet given: 02/10/18 - Substance & Tx. History Hx Alcohol Use: Yes Hx Substance Use: Yes Substance Use Type: Alcohol, Cocaine Hx Substance Use Treatment: Yes - Substances Abused Alcohol Route: Oral Frequency: Daily Amount used: 24OZ VODKA , 6 PACKS OF BEER Age of first use: 14 Date of Last Use: 02/10/18 Cocaine Route: Smoking Frequency: Daily Amount used: 1GRAM Age of first use: 15 Date of Last Use: 11/25/17 Family Disease History - Family Disease History Family Disease History: Heart Disease: Mother (OPEN HEART SX, SUBSTANCE ABUSE. .), CA: Grandparent (BREAST--), Other: Father (AIDS; SUBSTANCE ABUSE; .), Mother Admission Physical Exam [facility] - Vital Signs Vital Signs: Vital Signs - 24 hr 02/10/18 10:08 Temperature 97.0 F L Pulse Rate 125 H Respiratory 20 Rate Blood Pressure 164/127 - Physical General Appearance: Yes: Nourished, Appropriately Dressed, Disheveled, Mild Distress, Intoxicated, Thin, Tremorous, Irritable, Sweating, Anxious HEENTM: Yes: Within Normal Limits, EOMI, Hearing grossly Normal, Normal ENT Inspection, Normocephalic, Normal Voice, ARMAND, Pharynx Normal Respiratory: Yes: Within Normal Limits, Chest Non-Tender, Lungs Clear, Normal Breath Sounds, No Respiratory Distress, No Accessory Muscle Use Neck: Yes: Within Normal Limits, No masses,lesions,Nodules, Supple, Trachea in good position Breast: Yes: Breast Exam Deferred Cardiology: Yes: Within Normal Limits, Regular Rhythm, Regular Rate, S1, S2 Abdominal: Yes: Within Normal Limits, Normal Bowel Sounds, Non Tender, Flat, Soft, Increased Bowel Sounds Genitourinary: Yes: Within Normal Limits Back: Yes: Within Normal Limits, Normal Inspection Musculoskeletal: Yes: full range of Motion, Gait Steady, Pelvis Stable, Back pain Extremities: Yes: Normal Capillary Refill, Normal Range of Motion, Non-Tender, Tremors 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: 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: 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 NML intact, Fully Oriented, Alert, Motor Strength 5/5, Normal Response, Depressed Affect Integumentary: Yes: Normal Color, Warm, Diaphoresis Lymphatic: Yes: Within Normal Limits - Addiitonal Findings: withdrawal sx - Diagnostic (1) Alcohol dependence with uncomplicated withdrawal Current Visit: No Status: Acute (2) Cocaine dependence, uncomplicated Current Visit: No Status: Acute (3) Seizure disorder Current Visit: No Status: Acute (4) Asthma Current Visit: No Status: Chronic (5) Bipolar disorder Current Visit: No Status: Chronic Qualifiers: Active/Remission status: remission status unspecified Qualified Code(s): F31.9 - Bipolar disorder, unspecified (6) HTN (hypertension) Current Visit: No Status: Chronic Qualifiers: Hypertension type: essential hypertension Qualified Code(s): I10 - Essential (primary) hypertension (7) History of seizure Current Visit: No Status: Chronic Comment: Due to Alcohol-withdrawal. (8) History of uterine fibroid Current Visit: No Status: Chronic (9) Nicotine dependence Current Visit: No Status: Chronic Qualifiers: Nicotine product type: cigarettes Substance use status: uncomplicated Qualified Code(s): F17.210 - Nicotine dependence, cigarettes, uncomplicated (10) Schizophrenia Current Visit: No Status: Suspected Qualifiers: Schizophrenia type: unspecified Qualified Code(s): F20.9 - Schizophrenia, unspecified [facility] Breath Alcohol Content Breath Alcohol Content: 0.194 Urine Drug Screen - Results Drug Screen Negative: No Urine Drug Screen Results: BZO-Benzodiazepines"
[2018-02-10] MEDS ORDERED: hydrOXYzine PAMOATE 50 MG CAPSULE (FP) PO PRN (11:48)
[2018-02-10] MEDS ORDERED: MAGNESIUM CITRATE 300 ML BOTTLE PO PRN (11:48)
[2018-02-10] MEDS ORDERED: MAGNESIUM HYDROX 2400MG/30ML ORAL SUSPENSION 30 ML CUP PO PRN (11:48)
[2018-02-10] MEDS ORDERED: P-EPHED 60MG/TRIPROLIDI 2.5MG TABLET PO PRN (11:48)
[2018-02-10] MEDS ORDERED: NICOTINE POLACRILEX 2 MG GUM BUC PRN (11:48)
[2018-02-10] MEDS ORDERED: MENTHOL/PHENOL 1 EACH UD MM PRN (11:48)
[2018-02-10] MEDS ORDERED: guaiFENesin/D-METHORPHAN HB 10 ML UNIT-DOSE CUPS PO PRN (11:48)
[2018-02-10] MEDS ORDERED: LOPERAMIDE HCL 2 MG CAPSULE PO PRN (11:48)
[2018-02-10] MEDS ORDERED: ALBUTEROL SO4 18 GM HFA INHALER IH PRN (11:50)
[2018-02-10] MEDS ORDERED: IBUPROFEN PO PRN (11:50)
[2018-02-10] MEDS ORDERED: chlordiazePOXIDE HCL 25 MG CAPSULE PO ONE (13:00)
[2018-02-10] MEDS: PANTOPRAZOLE 40 MG TABLET (FP) PO SCH (13:41)
[2018-02-10] MEDS: NICOTINE 14 MG/24 HOURS TOPICAL PATCH TD SCH (13:41)
[2018-02-10] MEDS: cloNIDine HCL 0.1 MG TABLET PO SCH ×2 (13:41→22:26)
--- NOTE | 2018-02-10 13:52 | CONSULT ---
[facility] Psychiatric Consult - Data Date of interview: 02/10/18 Admission source: [facility] Identifying data: This is 42 years female, single, homeless, unemployed, on SSI , with history of Bipolar Disorder, psychiatric hospitalization history, with history of chronic alcoholism, Cocaine abuse/dependence, currently seeking for detox, reports symptoms of Alcohol and Cocaine withdrawal. Substance Abuse History: Smoking Cessation. Smoking history: Never smoked. Have you smoked in the past 12 months: Yes. Aproximately how many cigarettes per day: 10. Cigars Per Day: 0. Hx Chewing Tobacco Use: No. Initiated information on smoking cessation: Yes. 'Breaking Loose' booklet given: . - Substance & Tx. History. Hx Alcohol Use: Yes. Hx Substance Use: Yes. Substance Use Type: Alcohol, Cocaine. Hx Substance Use Treatment: Yes. - Substances Abused. Alcohol. Route: Oral. Frequency: Daily. Amount used: 24OZ VODKA , 6 PACKS OF BEER. Age of first use: 14. Date of Last Use: . Cocaine. Route: Smoking. Frequency: Daily. Amount used: 1GRAM. Age of first use: 15. Date of Last Use: 11/25/17 Medical History: Seizure disorder, Asthma, HTN Psychiatric History: Patient reports history of Bipolar Disorder, Schizophrenia with most recent psychiatric admission for safety at [facility] few months ago. As per chart patient has been on: Seroquel 400mg po qhs. Celexa 20mg poqd. Patient refusing above medicatyions, reports severe insomnia and asking for Ambien 10mg po qhs order she was usinf with good response prior to admission. Patient reports Borderline persionality history Physical/Sexual Abuse/Trauma History: Denies, unclear Additional Comment: Ambien 10mg po qhs Mental Status Exam - Mental Status Exam Alert and Oriented to: Place, Person Cognitive Function: Fair Patient Appearance: Well Groomed Mood: Anxious Affect: Labile Patient Behavior: Talkative, Cooperative Speech Pattern: Excessive Voice Loudness: Normal Thought Process: Circumstantial, Goal Oriented Thought Disorder: Being Controlled Hallucinations: Denies Suicidal Ideation: Denies Homicidal Ideation: Denies Insight/Judgement: Fair Sleep: Difficulty falling asleep Appetite: Weight loss Muscle strength/Tone: Normal Gait/Station: Normal Additional Comments: Ambien 10mg po qhs Psychiatric Findings - Problem List ([place] 1, 2,3) (1) Drug-induced mood disorder Current Visit: Yes Status: Acute (2) Alcohol dependence Current Visit: No Status: Acute (3) Alcohol dependence with uncomplicated withdrawal Current Visit: No Status: Acute (4) Cocaine dependence, uncomplicated Current Visit: No Status: Acute (5) Bipolar disorder Current Visit: No Status: Chronic Qualifiers: Active/Remission status: remission status unspecified Qualified Code(s): F31.9 - Bipolar disorder, unspecified (6) Nicotine dependence Current Visit: No Status: Chronic Qualifiers: Nicotine product type: cigarettes Substance use status: uncomplicated Qualified Code(s): F17.210 - Nicotine dependence, cigarettes, uncomplicated (7) Schizophrenia Current Visit: No Status: Suspected Qualifiers: Schizophrenia type: unspecified Qualified Code(s): F20.9 - Schizophrenia, unspecified - Initial Treatment Plan Initial Treatment Plan: Ambien 10mg po qhs
--- NOTE | 2018-02-10 14:51 | EKG ---
Test Reason : Blood Pressure : / mmHG Vent. Rate : 076 BPM Atrial Rate : 076 BPM P-R Int : 138 ms QRS Dur : 072 ms QT Int : 394 ms P-R-T Axes : 063 021 039 degrees QTc Int : 443 ms NORMAL SINUS RHYTHM POSSIBLE LEFT ATRIAL ENLARGEMENT SEPTAL INFARCT (CITED ON OR BEFORE 14-APR-2017) ABNORMAL ECG WHEN COMPARED WITH ECG OF 14-APR-2017 16:39, NO SIGNIFICANT CHANGE WAS FOUND Confirmed by FABIOLA SOLORIO MD ([id number]) on 02/10/2018 2:50:44 PM Referred By: Confirmed By:FABIOLA SOLORIO MD
[2018-02-10] MEDS: chlordiazePOXIDE HCL 25 MG CAPSULE PO SCH ×2 (17:11→22:25)
[2018-02-10 18:07] LABS: URINE APPEARANCE CLOUDY; URINE BILIRUBIN NEGATIVE (<2.0 mg/dL); URINE COLOR DKYELLOW; URINE GLUCOSE (UA) NEGATIVE (NEGATIVE); URINE KETONE NEGATIVE (NEGATIVE); URINE NITRITE NEGATIVE (NEGATIVE); URINE UROBILINOGEN NEGATIVE mg/dL (0.2-1.0)
[2018-02-10 18:10] LABS: URINE LEUK ESTERASE 3+ (NEGATIVE); URINE PROTEIN 2+ (NEGATIVE)
[2018-02-10 18:15] LABS: EPI CELLS RARE /HPF (FEW); URINE MUCUS RARE
[2018-02-10] MEDS ORDERED: MELATONIN 5 MG TABLETS PO PRN (22:00)
[2018-02-10] MEDS: THIAMINE HCL 100 MG TABLET (FP) PO SCH (22:24)
[2018-02-10] MEDS: IBUPROFEN 400 MG TABLET (FP) PO PRN (22:25)
[2018-02-11] MEDS: chlordiazePOXIDE HCL 25 MG CAPSULE PO SCH ×4 (05:29→22:20)
[2018-02-11] MEDS: chlordiazePOXIDE HCL 25 MG CAPSULE PO PRN (07:46)
--- NOTE | 2018-02-11 09:39 | PN ---
[facility] Progress Note (SOAP) Subjective: nausea, sweats, interrupted , anxiety, tremors Objective: 02/11/18 09:37 Vital Signs - 24 hr 02/10/18 02/10/18 02/10/18 10:08 14:26 15:30 Temperature 97.0 F L 98.1 F Pulse Rate 125 H 102 H 110 H Respiratory 20 18 16 Rate Blood Pressure 164/127 120/79 02/10/18 02/10/18 02/10/18 16:00 17:00 17:30 Temperature Pulse Rate 111 H 93 H 95 H Respiratory 18 18 Rate Blood Pressure 02/10/18 02/10/18 02/10/18 18:00 18:30 19:00 Temperature 99.1 F Pulse Rate 90 90 93 H Respiratory 18 20 18 Rate Blood Pressure 112/85 02/10/18 02/10/18 02/10/18 19:30 20:00 21:00 Temperature Pulse Rate 91 H 90 89 Respiratory 18 18 20 Rate Blood Pressure 02/10/18 02/10/18 02/10/18 21:30 22:00 22:30 Temperature 99.1 F Pulse Rate 69 96 H 88 Respiratory 20 20 20 Rate Blood Pressure 90/56 02/10/18 02/11/18 02/11/18 23:00 00:30 01:00 Temperature Pulse Rate 84 80 82 Respiratory 20 18 18 Rate Blood Pressure 02/11/18 02/11/18 02/11/18 01:30 02:00 02:30 Temperature Pulse Rate 84 86 88 Respiratory 18 18 18 Rate Blood Pressure 02/11/18 02/11/18 02/11/18 03:30 04:00 04:30 Temperature Pulse Rate 80 80 Respiratory 18 18 18 Rate Blood Pressure 02/11/18 02/11/18 02/11/18 05:00 05:30 06:00 Temperature Pulse Rate 78 87 86 Respiratory 18 18 18 Rate Blood Pressure 02/11/18 02/11/18 02/11/18 06:30 07:00 07:25 Temperature 98.2 F Pulse Rate 84 82 87 Respiratory 18 18 18 Rate Blood Pressure 105/77 02/11/18 07:30 Temperature Pulse Rate 80 Respiratory 18 Rate Blood Pressure Laboratory Tests 02/10/18 15:00 Urine Color Dkyellow Urine Appearance Cloudy Urine pH 6.0 Ur Specific [place] 1.016 Urine Protein 2+ H Urine Glucose (UA) Negative Urine Ketones Negative Urine Blood 2+ H Urine Nitrite Negative Urine Bilirubin Negative Urine Urobilinogen Negative Ur Leukocyte Esterase 3+ H Urine WBC (Auto) 135 Urine RBC (Auto) 2 Ur Epithelial Cells Rare Urine Mucus Rare check labs , repeat urinalysis Assessment: 02/11/18 09:38 withdrawl sx, bp controlled with clonidine although patient is concerned it is high, denies dysurain - repeat urinalysis c heck labs, fluids, encoruage ambulation
[2018-02-11] MEDS: PANTOPRAZOLE 40 MG TABLET (FP) PO SCH (10:28)
[2018-02-11] MEDS: PRENATAL VITAMINS W/ FOLIC ACID TABLET (FP) PO SCH (10:28)
[2018-02-11] MEDS: NICOTINE 14 MG/24 HOURS TOPICAL PATCH TD SCH (10:28)
[2018-02-11 10:43] LABS: HEMATOCRIT 37.6 % (32.4-45.2); HEMOGLOBIN 12.7 GM/dL (10.7-15.3); MCH 30.7 pg (25.7-33.7); MCHC 33.7 g/dl (32.0-36.0); MEAN CELL VOLUME 91.2 fl (80-96); MEAN PLT VOLUME 9.2 fl (7.5-11.1); PLATELET COUNT 171 K/MM3 (134-434); RBC 4.12 M/mm3 (3.60-5.2); RDW 13.1 % (11.6-15.6); WHITE BLOOD COUNT 2.6 K/mm3 (4.0-10.0)
[2018-02-11 10:52] LABS: ALBUMIN 3.8 g/dl (3.4-5.0); ANION GAP 9 (8-16); BLOOD UREA NITROGEN 6 mg/dL (7-18); CALCIUM 8.4 mg/dL (8.5-10.1); CHLORIDE 101 mmol/L (98-107); CO2 27 mmol/L (21-32); CREATININE 0.5 mg/dL (0.55-1.02); GLUCOSE,RANDOM 95 mg/dL (74-106); POTASSIUM 3.6 mmol/L (3.5-5.1); SGOT/AST 202 U/L (15-37); SGPT/ALT 61 U/L (12-78); SODIUM 137 mmol/L (136-145)
[2018-02-11 10:55] LABS: ALK PHOS 116 U/L (45-117); BILIRUBIN,TOTAL 0.3 mg/dL (0.2-1.0); TOT PROT 9.4 g/dl (6.4-8.2)
[2018-02-11] MEDS: cloNIDine HCL 0.1 MG TABLET PO SCH (11:08)
[2018-02-11] MEDS ORDERED: hydrOXYzine PAMOATE 50 MG CAPSULE (FP) PO ONE (11:09)
[2018-02-11] MEDS: IBUPROFEN 400 MG TABLET (FP) PO PRN (11:14)
[2018-02-11] MEDS: hydrOXYzine PAMOATE 50 MG CAPSULE (FP) PO SCH ×2 (14:08→22:20)
[2018-02-11 14:37] LABS: URINE APPEARANCE CLOUDY; URINE BILIRUBIN NEGATIVE (<2.0 mg/dL); URINE COLOR AMBER; URINE GLUCOSE (UA) NEGATIVE (NEGATIVE); URINE KETONE TRACE (NEGATIVE); URINE NITRITE NEGATIVE (NEGATIVE)
[2018-02-11 14:38] LABS: URINE LEUK ESTERASE 1+ (NEGATIVE); URINE PROTEIN 2+ (NEGATIVE)
[2018-02-11 14:43] LABS: EPI CELLS RARE /HPF (FEW); URINE BACTERIA RARE /hpf (NONE SEEN); URINE HYALINE CAST 11 /lpf; URINE MUCUS FEW
[2018-02-11] MEDS: THIAMINE HCL 100 MG TABLET (FP) PO SCH (22:20)
[2018-02-11] MEDS: MAG HYDROX/AL HYDROX/SIMETH 30 ML UNIT-DOSE CUP PO PRN (22:20)
[2018-02-11] MEDS: ZOLPIDEM TARTRATE 10 MG TABLET (PARK CARE ONLY) PO PRN (22:20)
[2018-02-12] MEDS: IBUPROFEN 400 MG TABLET (FP) PO PRN ×2 (01:46→22:38)
[2018-02-12] MEDS: chlordiazePOXIDE HCL 25 MG CAPSULE PO SCH ×2 (05:31→10:49)
[2018-02-12] MEDS: hydrOXYzine PAMOATE 50 MG CAPSULE (FP) PO SCH ×3 (05:31→22:38)
[2018-02-12] MEDS: chlordiazePOXIDE HCL 25 MG CAPSULE PO PRN (09:16)
[2018-02-12] MEDS: PRENATAL VITAMINS W/ FOLIC ACID TABLET (FP) PO SCH (10:49)
[2018-02-12] MEDS: PANTOPRAZOLE 40 MG TABLET (FP) PO SCH (10:49)
[2018-02-12] MEDS: cloNIDine HCL 0.1 MG TABLET PO SCH (10:49)
[2018-02-12] MEDS: NICOTINE 14 MG/24 HOURS TOPICAL PATCH TD SCH (10:49)
[2018-02-12] MEDS: chlordiazePOXIDE 5 MG CAPSULE PO SCH ×2 (17:33→22:38)
--- NOTE | 2018-02-12 20:36 | PN ---
S CIWA - CIWA Score Nausea/Vomitin Muscle Tremors: 3 Anxiety: 3 Agitation: 3 Paroxysmal Sweats: No Perspiration Orientation: 0-Oriented Tacttile Disturbances: 0-None Auditory Disturbances: 0-None Visual Disturbances: 0-None Headache: 0-None Present CIWA-Ar Total Score: 12 [facility] Progress Note (SOAP) Subjective: Anxious sweats shakes Objective: 02/12/18 20:32 A& O x 3 Vital Signs Temperature 99.0 F 02/12/18 17:54 Pulse Rate 76 02/12/18 17:54 Respiratory Rate 18 02/12/18 17:54 Blood Pressure 122/77 02/12/18 17:54 O2 Sat by Pulse Oximetry (%) Laboratory Last Values WBC 2.6 K/mm3 (4.0-10.0) L 02/11/18 05:50 RBC 4.12 M/mm3 (3.60-5.2) 02/11/18 05:50 Hgb 12.7 GM/dL (10.7-15.3) 02/11/18 05:50 Hct 37.6 % (32.4-45.2) 02/11/18 05:50 MCV 91.2 fl (80-96) 02/11/18 05:50 MCH 30.7 pg (25.7-33.7) 02/11/18 05:50 MCHC 33.7 g/dl (32.0-36.0) 02/11/18 05:50 RDW 13.1 % (11.6-15.6) 02/11/18 05:50 Plt Count 171 K/MM3 (134-434) 02/11/18 05:50 MPV 9.2 fl (7.5-11.1) D 02/11/18 05:50 Sodium 137 mmol/L (136-145) 02/11/18 05:50 Potassium 3.6 mmol/L (3.5-5.1) 02/11/18 05:50 Chloride 101 mmol/L (98-107) 02/11/18 05:50 Carbon Dioxide 27 mmol/L (21-32) 02/11/18 05:50 Anion Gap 9 (8-16) 02/11/18 05:50 BUN 6 mg/dL (7-18) L 02/11/18 05:50 Creatinine 0.5 mg/dL (0.55-1.02) L 02/11/18 05:50 Creat Clearance w eGFR > 60 (>60) 02/11/18 05:50 Random Glucose 95 mg/dL (74-106) 02/11/18 05:50 Calcium 8.4 mg/dL (8.5-10.1) L 02/11/18 05:50 Total Bilirubin 0.3 mg/dL (0.2-1.0) D 02/11/18 05:50 AST 202 U/L (15-37) H 02/11/18 05:50 ALT 61 U/L (12-78) 02/11/18 05:50 Alkaline Phosphatase 116 U/L (45-117) 02/11/18 05:50 Total Protein 9.4 g/dl (6.4-8.2) H 02/11/18 05:50 Albumin 3.8 g/dl (3.4-5.0) 02/11/18 05:50 Urine Color [place] 02/11/18 12:30 Urine Appearance Cloudy 02/11/18 12:30 Urine pH 5.0 (5.0-8.0) 02/11/18 12:30 Ur Specific [place] 1.023 (1.001-1.035) 02/11/18 12:30 Urine Protein 2+ (NEGATIVE) H 02/11/18 12:30 Urine Glucose (UA) Negative (NEGATIVE) 02/11/18 12:30 Urine Ketones Trace (NEGATIVE) H 02/11/18 12:30 Urine Blood 3+ (NEGATIVE) H 02/11/18 12:30 Urine Nitrite Negative (NEGATIVE) 02/11/18 12:30 Urine Bilirubin Negative (<2.0 mg/dL) 02/11/18 12:30 Urine Urobilinogen 2.0 mg/dL (0.2-1.0) H 02/11/18 12:30 Ur Leukocyte Esterase 1+ (NEGATIVE) H D 02/11/18 12:30 Urine WBC (Auto) 38 /hpf (3-5) 02/11/18 12:30 Urine RBC (Auto) 7 /hpf (0-3) 02/11/18 12:30 Ur Epithelial Cells Rare /HPF (FEW) 02/11/18 12:30 Urine Bacteria Rare /hpf (NONE SEEN) 02/11/18 12:30 Hyaline Casts 11 /lpf 02/11/18 12:30 Urine Mucus Few 02/11/18 12:30 RPR Titer Nonreactive (NONREACTIVE) 02/11/18 05:50 labs noted. Abnormal UA Assessment: 02/12/18 20:34 Withdrawal sx Dehydration Plan: continue detox Urine culture Increase hydration
[2018-02-12] MEDS: MAG HYDROX/AL HYDROX/SIMETH 30 ML UNIT-DOSE CUP PO PRN (21:16)
[2018-02-12] MEDS: ZOLPIDEM TARTRATE 10 MG TABLET (PARK CARE ONLY) PO PRN (22:37)
[2018-02-12] MEDS: THIAMINE HCL 100 MG TABLET (FP) PO SCH (22:39)
[2018-02-13] MEDS: hydrOXYzine PAMOATE 50 MG CAPSULE (FP) PO SCH ×3 (05:28→22:22)
[2018-02-13] MEDS: chlordiazePOXIDE 5 MG CAPSULE PO SCH ×2 (05:28→10:21)
[2018-02-13] MEDS: cloNIDine HCL 0.1 MG TABLET PO SCH (10:21)
[2018-02-13] MEDS: PRENATAL VITAMINS W/ FOLIC ACID TABLET (FP) PO SCH (10:21)
[2018-02-13] MEDS: PANTOPRAZOLE 40 MG TABLET (FP) PO SCH (10:21)
[2018-02-13] MEDS: NICOTINE 14 MG/24 HOURS TOPICAL PATCH TD SCH (10:22)
--- NOTE | 2018-02-13 13:49 | PN ---
[facility] Progress Note Note: received lab called need urine culture order
--- NOTE | 2018-02-13 14:23 | PN ---
[facility] Progress Note (SOAP) Subjective: feeling better less sweat no tremor well rested Objective: 02/13/18 14:23 Vital Signs Temperature 98.2 F 02/13/18 14:05 Pulse Rate 92 H 02/13/18 14:05 Respiratory Rate 20 02/13/18 14:05 Blood Pressure 111/70 02/13/18 14:05 O2 Sat by Pulse Oximetry (%) Laboratory Last Values WBC 2.6 K/mm3 (4.0-10.0) L 02/11/18 05:50 RBC 4.12 M/mm3 (3.60-5.2) 02/11/18 05:50 Hgb 12.7 GM/dL (10.7-15.3) 02/11/18 05:50 Hct 37.6 % (32.4-45.2) 02/11/18 05:50 MCV 91.2 fl (80-96) 02/11/18 05:50 MCH 30.7 pg (25.7-33.7) 02/11/18 05:50 MCHC 33.7 g/dl (32.0-36.0) 02/11/18 05:50 RDW 13.1 % (11.6-15.6) 02/11/18 05:50 Plt Count 171 K/MM3 (134-434) 02/11/18 05:50 MPV 9.2 fl (7.5-11.1) D 02/11/18 05:50 Sodium 137 mmol/L (136-145) 02/11/18 05:50 Potassium 3.6 mmol/L (3.5-5.1) 02/11/18 05:50 Chloride 101 mmol/L (98-107) 02/11/18 05:50 Carbon Dioxide 27 mmol/L (21-32) 02/11/18 05:50 Anion Gap 9 (8-16) 02/11/18 05:50 BUN 6 mg/dL (7-18) L 02/11/18 05:50 Creatinine 0.5 mg/dL (0.55-1.02) L 02/11/18 05:50 Creat Clearance w eGFR > 60 (>60) 02/11/18 05:50 Random Glucose 95 mg/dL (74-106) 02/11/18 05:50 Calcium 8.4 mg/dL (8.5-10.1) L 02/11/18 05:50 Total Bilirubin 0.3 mg/dL (0.2-1.0) D 02/11/18 05:50 AST 202 U/L (15-37) H 02/11/18 05:50 ALT 61 U/L (12-78) 02/11/18 05:50 Alkaline Phosphatase 116 U/L (45-117) 02/11/18 05:50 Total Protein 9.4 g/dl (6.4-8.2) H 02/11/18 05:50 Albumin 3.8 g/dl (3.4-5.0) 02/11/18 05:50 Urine Color [place] 02/11/18 12:30 Urine Appearance Cloudy 02/11/18 12:30 Urine pH 5.0 (5.0-8.0) 02/11/18 12:30 Ur Specific [place] 1.023 (1.001-1.035) 02/11/18 12:30 Urine Protein 2+ (NEGATIVE) H 02/11/18 12:30 Urine Glucose (UA) Negative (NEGATIVE) 02/11/18 12:30 Urine Ketones Trace (NEGATIVE) H 02/11/18 12:30 Urine Blood 3+ (NEGATIVE) H 02/11/18 12:30 Urine Nitrite Negative (NEGATIVE) 02/11/18 12:30 Urine Bilirubin Negative (<2.0 mg/dL) 02/11/18 12:30 Urine Urobilinogen 2.0 mg/dL (0.2-1.0) H 02/11/18 12:30 Ur Leukocyte Esterase 1+ (NEGATIVE) H D 02/11/18 12:30 Urine WBC (Auto) 38 /hpf (3-5) 02/11/18 12:30 Urine RBC (Auto) 7 /hpf (0-3) 02/11/18 12:30 Ur Epithelial Cells Rare /HPF (FEW) 02/11/18 12:30 Urine Bacteria Rare /hpf (NONE SEEN) 02/11/18 12:30 Hyaline Casts 11 /lpf 02/11/18 12:30 Urine Mucus Few 02/11/18 12:30 RPR Titer Nonreactive (NONREACTIVE) 02/11/18 05:50 lab noted Assessment: 02/13/18 14:24 mild withdrawal sx Plan: medically supervised detox
[2018-02-13] MEDS: chlordiazePOXIDE HCL 10 MG CAPSULE PO SCH ×2 (17:23→22:22)
[2018-02-13] MEDS: ACETAMINOPHEN 325 MG TABLET (FP) PO PRN (19:53)
[2018-02-13] MEDS: ZOLPIDEM TARTRATE 10 MG TABLET (PARK CARE ONLY) PO PRN (20:52)
[2018-02-13 21:45] VITALS: TEMP 97.9
[2018-02-13] MEDS: IBUPROFEN 400 MG TABLET (FP) PO PRN (22:22)
[2018-02-13] MEDS: THIAMINE HCL 100 MG TABLET (FP) PO SCH (22:22)
[2018-02-14] MEDS: chlordiazePOXIDE HCL 10 MG CAPSULE PO SCH (06:00)
[2018-02-14] MEDS: hydrOXYzine PAMOATE 50 MG CAPSULE (FP) PO SCH (06:21)
[2018-02-14] MEDS: ACETAMINOPHEN 325 MG TABLET (FP) PO PRN (06:22)
[2018-02-14 07:54] VITALS: BP 135/98; PULSE 87
[2018-02-14] MEDS: PRENATAL VITAMINS W/ FOLIC ACID TABLET (FP) PO SCH (09:02)
[2018-02-14] MEDS: NICOTINE 14 MG/24 HOURS TOPICAL PATCH TD SCH (09:02)
[2018-02-14] MEDS: cloNIDine HCL 0.1 MG TABLET PO SCH (09:02)
[2018-02-14] MEDS: PANTOPRAZOLE 40 MG TABLET (FP) PO SCH (09:02)
--- NOTE | 2018-02-14 09:21 | DS ---
[facility] Detox Discharge Summary Admission Date: 02/10/18 Discharge Date: 02/14/18 - History Present History: Alcohol Dependence Additional Comments: 42 years old female admitted 02/10/18 for alcohol withdrawal sx completed detox regimen tolerated well denies alcohol withdrawal sx alert oriented x 3 no acute distress wants [facility] aftercare patient agrees to follow up with primary care provider for hypertension due to non adherence of medication patter possible alternative to clonidine patient agrees [facility] aftercare for addiction management - Physical Exam Results Vital Signs: Vital Signs Temperature 97.9 F 02/14/18 05:00 Pulse Rate 87 02/14/18 05:00 Respiratory Rate 16 02/14/18 05:00 Blood Pressure 135/98 02/14/18 05:00 O2 Sat by Pulse Oximetry (%) Pertinent Admission Physical Exam Findings: withdrawal sx Vital Signs Temperature 97.9 F 02/14/18 05:00 Pulse Rate 87 02/14/18 05:00 Respiratory Rate 16 02/14/18 05:00 Blood Pressure 135/98 02/14/18 05:00 O2 Sat by Pulse Oximetry (%) Laboratory Last Values WBC 2.6 K/mm3 (4.0-10.0) L 02/11/18 05:50 RBC 4.12 M/mm3 (3.60-5.2) 02/11/18 05:50 Hgb 12.7 GM/dL (10.7-15.3) 02/11/18 05:50 Hct 37.6 % (32.4-45.2) 02/11/18 05:50 MCV 91.2 fl (80-96) 02/11/18 05:50 MCH 30.7 pg (25.7-33.7) 02/11/18 05:50 MCHC 33.7 g/dl (32.0-36.0) 02/11/18 05:50 RDW 13.1 % (11.6-15.6) 02/11/18 05:50 Plt Count 171 K/MM3 (134-434) 02/11/18 05:50 MPV 9.2 fl (7.5-11.1) D 02/11/18 05:50 Sodium 137 mmol/L (136-145) 02/11/18 05:50 Potassium 3.6 mmol/L (3.5-5.1) 02/11/18 05:50 Chloride 101 mmol/L (98-107) 02/11/18 05:50 Carbon Dioxide 27 mmol/L (21-32) 02/11/18 05:50 Anion Gap 9 (8-16) 02/11/18 05:50 BUN 6 mg/dL (7-18) L 02/11/18 05:50 Creatinine 0.5 mg/dL (0.55-1.02) L 02/11/18 05:50 Creat Clearance w eGFR > 60 (>60) 02/11/18 05:50 Random Glucose 95 mg/dL (74-106) 02/11/18 05:50 Calcium 8.4 mg/dL (8.5-10.1) L 02/11/18 05:50 Total Bilirubin 0.3 mg/dL (0.2-1.0) D 02/11/18 05:50 AST 202 U/L (15-37) H 02/11/18 05:50 ALT 61 U/L (12-78) 02/11/18 05:50 Alkaline Phosphatase 116 U/L (45-117) 02/11/18 05:50 Total Protein 9.4 g/dl (6.4-8.2) H 02/11/18 05:50 Albumin 3.8 g/dl (3.4-5.0) 02/11/18 05:50 Urine Color Dorina 02/11/18 12:30 Urine Appearance Cloudy 02/11/18 12:30 Urine pH 5.0 (5.0-8.0) 02/11/18 12:30 Ur Specific [place] 1.023 (1.001-1.035) 02/11/18 12:30 Urine Protein 2+ (NEGATIVE) H 02/11/18 12:30 Urine Glucose (UA) Negative (NEGATIVE) 02/11/18 12:30 Urine Ketones Trace (NEGATIVE) H 02/11/18 12:30 Urine Blood 3+ (NEGATIVE) H 02/11/18 12:30 Urine Nitrite Negative (NEGATIVE) 02/11/18 12:30 Urine Bilirubin Negative (<2.0 mg/dL) 02/11/18 12:30 Urine Urobilinogen 2.0 mg/dL (0.2-1.0) H 02/11/18 12:30 Ur Leukocyte Esterase 1+ (NEGATIVE) H D 02/11/18 12:30 Urine WBC (Auto) 38 /hpf (3-5) 02/11/18 12:30 Urine RBC (Auto) 7 /hpf (0-3) 02/11/18 12:30 Ur Epithelial Cells Rare /HPF (FEW) 02/11/18 12:30 Urine Bacteria Rare /hpf (NONE SEEN) 02/11/18 12:30 Hyaline Casts 11 /lpf 02/11/18 12:30 Urine Mucus Few 02/11/18 12:30 RPR Titer Nonreactive (NONREACTIVE) 02/11/18 05:50 lab noted - Treatment Hospital Course: Detox Protocol Followed, Detoxed Safely, Responded well, Discharged Condition Good, Rehab Referral Accepted Patient has Accepted a Rehab Referral to: [facility] - Medication Discharge Medications: Ambulatory Orders Ibuprofen [Motrin -] 800 mg PO PRN PRN 10/10/13 Citalopram Hydrobromide [Celexa -] 20 mg PO DAILY 02/10/18 Quetiapine Fumarate [Seroquel] 600 mg PO DAILY 02/10/18 Albuterol Sulfate Inhaler - [Ventolin HFA Inhaler -] 2 inh PO Q4H PRN #1 inhaler 02/13/18 Clonidine HCl 0.1 mg PO DAILY #30 tablet 02/13/18 - Diagnosis (1) Alcohol dependence with uncomplicated withdrawal Current Visit: Yes Status: Acute (2) Asthma Current Visit: Yes Status: Chronic (3) Bipolar disorder Current Visit: Yes Status: Suspected Qualifiers: Active/Remission status: remission status unspecified Qualified Code(s): F31.9 - Bipolar disorder, unspecified (4) HTN (hypertension) Current Visit: Yes Status: Chronic Qualifiers: Hypertension type: essential hypertension Qualified Code(s): I10 - Essential (primary) hypertension (5) Nicotine dependence Current Visit: Yes Status: Acute Qualifiers: Nicotine product type: cigarettes Substance use status: in withdrawal Qualified Code(s): F17.213 - Nicotine dependence, cigarettes, with withdrawal - AMA Did Patient Leave Against Medical Advice: No
== END 2018-02-14 09:05 | disposition home or self-care (01) | DRG 774 ==
LOC: YASAS 08:59 → Y6N 12:38
PROVIDERS: ADMIT Internal Medicine; ATTEND Internal Medicine
PROC: HZ2ZZZZ Detoxification Services for Substance Abuse Treatment (ICD-10-PCS; principal; 2018-02-10)
DX: F10.230 Alcohol dependence with withdrawal, uncomplicated (principal); F14.20 Cocaine dependence, uncomplicated; F17.213 Nicotine dependence, cigarettes, with withdrawal; F19.24 Other psychoactive substance dependence with psychoactive substance-induced mood disorder; F31.9 Bipolar disorder, unspecified; F20.9 Schizophrenia, unspecified; I10 Essential (primary) hypertension; J45.909 Unspecified asthma, uncomplicated; Z86.69 Personal history of other diseases of the nervous system and sense organs; Z86.018 Personal history of other benign neoplasm
CPT/HCPCS: 36415; 80053; 81003; 81015; 85027; 86593; 87086; 87186; 93005; 93010; J0735

== ENCOUNTER 2019-04-18 18:26 | Inpatient (IN) | payer OTHER ==
[2019-04-18 21:13] VITALS: BMI 19.0
[2019-04-18] MEDS ORDERED: chlordiazePOXIDE HCL 25 MG CAPSULE PO SCH (23:00)
--- NOTE | 2019-04-18 23:02 | HP ---
CIWA Score Nausea/Vomitin Muscle Tremors: 4-Moderate,w/Arms Extend Anxiety: 4-Mod. Anxious/Guarded Agitation: 4-Moderately Restless Paroxysmal Sweats: 3 Orientation: 3-Disoriented Date>2 days Tacttile Disturbances: 3-Moderate Itch/Numb/Burn Auditory Disturbances: 2-Mild Harshness/Frighten Visual Disturbances: 2-Mild Sensitivity Headache: 3-Moderate CIWA-Ar Total Score: 31 - Admission Criteria OASAS Guidelines: Admission for Medically Managed Detox: Requires at least one of the followin. CIWA greater than 12 2. Seizures within the past 24 hours 3. Delirium tremens within the past 24 hours 4. Hallucinations within the past 24 hours 5. Acute intervention needed for co occurring medical disorder 6. Acute intervention needed for co occurring psychiatric disorder 7. Severe withdrawal that cannot be handled at a lower level of care (continued vomiting, continued diarrhea, abnormal vital signs) requiring intravenous medication and/or fluids 8. Patient presents the following: CIWA greater than 12, Acute intervention needed for co-occurring med or psych disorder, Severe withdrawal requiring intravenous medication and/or fluids Admission Criteria Met: Admission criteria met Admission ROS [facility] Chief Complaint: C/O WORSENING WITHDRAWAL SX'S Allergies/Adverse Reactions: Allergies Allergy/AdvReac Type Severity Reaction Status Date / Time aspirin AdvReac Severe HEAVY Verified 04/18/19 20:53 MENSES lactose AdvReac Intermediate Nausea Verified 04/18/19 20:53 Lactose Intolerant AdvReac Intermediate Nausea Uncoded 04/18/19 20:53 History of Present Illness: 43 Y.O FEMALE WITH Alcoholism here for detox. she presents with c/o worsening withdrawal sxs'. ciwa 31. she was recently admitted to [facility] on and dc 3 days later for alcohol intoxication. she reports relapsing right after dc and has been drinking heAVLY DAILY. Last drink ealrier today due to withdrawal sxs. She reports hx/o withdrawal sz, + black outs. domiciled, unemployed, denies legals Exam Limitations: Other (appears very sedated but arousable) - Ebola screening Have you traveled outside of the country in the last 21 days: No (N) Have you had contact with anyone from an Ebola affected area: No Do you have a fever: No - Review of Systems Constitutional: Chills, Loss of Appetite, Malaise, Night Sweats, Changes in sleep, Unintentional Wgt. Loss, Other (frail) EENT: reports: Blurred Vision (glasses not with patient) Respiratory: reports: Shortness of Breath Cardiac: reports: Chest Pain GI: reports: Poor Appetite, Poor Fluid Intake, Abdominal cramping : reports: Dysuria Musculoskeletal: reports: Back Pain, Joint Pain, Neck Pain Integumentary: reports: Bruising Neuro: reports: Headache, Seizure (1.5 week ago), Tremors, Unsteady Gait Endocrine: reports: No Symptoms Reported Hematology: reports: Anemia, Easy Bruising Psychiatric: reports: Orientated x3, Agitated (irritable), Depressed (denie si) Other Systems: Reviewed and Negative Patient History - Patient Medical History Hx Anemia: Yes (TAKES MULTIVITAMINS WITH IRON.) Hx Asthma: Yes (Uses Albuterol Inhaler.) Hx Chronic Obstructive Pulmonary Disease (COPD): No Hx Cancer: No Hx Cardiac Disorders: Yes (HTN.) Hx Congestive Heart Failure: No Hx Hypertension: Yes (Non-Compliant meds.) Hx Hypercholesterolemia: No Hx Pacemaker: No HX Cerebrovascular Accident: Yes (IN 2002--TREATED AT [facility]) Hx Seizures: Yes (alcohol related-last episode was apporx. 1 weel ago.) Hx Dementia: No Hx Diabetes: No Hx Gastrointestinal Disorders: No Hx Liver Disease: Yes (Cirrhosis.) Hx Genitourinary Disorders: No Hx Sexually Transmitted Disorders: No Hx Renal Disease (ESRD): No Hx Thyroid Disease: No Hx Human Immunodeficiency Virus (HIV): No (Last Tested approx. 1 year ago: NEGATIVE.) Hx Hepatitis C: No (Never Tested.) Hx Depression: Yes Hx Suicide Attempt: No (PATIENT DENIES CURRENT SI / HI.) Hx Bipolar Disorder: Yes (On med.) Hx Schizophrenia: Yes - Patient Surgical History Past Surgical History: Yes Hx Neurologic Surgery: No Hx Cataract Extraction: No Hx Cardiac Surgery: No Hx Lung Surgery: No Hx Breast Surgery: No Hx Breast Biopsy: No Hx Abdominal Surgery: No Hx Appendectomy: No Hx Cholecystectomy: No Hx Genitourinary Surgery: No Hx Section: No Hx Orthopedic Surgery: No Other Surgical History: Removal of Uterine Fibroid - 2014; 2 Abortions (during 20's). Anesthesia Reaction: No - PPD History Previous Implant?: Yes Documented Results: Negative w/proof Implanted On Prior [facility] Admission?: Yes Date: 04/16/17 Results: 0 mm PPD to be Administered?: Yes - Reproductive History Patient is a Female of Child Bearing Age (11 -55 yrs old): Yes Last Menstrual Period: 03/12/19 LMP comment: irreg Patient : No (neg [facility] [place]) - Smoking Cessation Smoking history: Current every day smoker Have you smoked in the past 12 months: Yes Aproximately how many cigarettes per day: 10 Cigars Per Day: 0 Hx Chewing Tobacco Use: No Initiated information on smoking cessation: Yes 'Breaking Loose' booklet given: 04/18/19 - Substance & Tx. History Hx Alcohol Use: Yes Hx Substance Use: Yes Substance Use Type: Alcohol, Marijuana Hx Substance Use Treatment: Yes ([facility]) - Substances abused Alcohol Substance route: Oral Frequency: Daily Amount used: 1 case- 24 ounces of beer Age of first use: 17 Date of last use: 04/17/19 Marijuana/Hashish Substance route: Smoking Frequency: 1-2 times per week Amount used: half of a blunt Age of first use: 16 Date of last use: 04/17/19 Cocaine Substance route: Inhalation Frequency: 3-6 times per week Amount used: 2 bags Age of first use: 14 Date of last use: 04/17/19 Family Disease History - Family Disease History Family Disease History: Heart Disease: Mother (OPEN HEART SX, SUBSTANCE ABUSE. .), CA: Grandparent (BREAST--), Other: Father (AIDS; SUBSTANCE ABUSE; .), Mother Admission Physical Exam S - Vital Signs Vital Signs: Vital Signs - 24 hr 04/18/19 04/18/19 20:52 22:30 Temperature 98.5 F 98.5 F Pulse Rate 87 87 Respiratory 18 18 Rate Blood Pressure 90/60 90/60 - Physical General Appearance: Yes: Moderate Distress, Cachetic, Tremorous (felt), Irritable, Anxious, Other (sleepy but arousable) HEENTM: Yes: EOMI, Normocephalic, Normal Voice, ARMAND, Pharynx Normal, Other ( poor dentition w/ missing teeth) Respiratory: Yes: Chest Non-Tender, Lungs Clear, Normal Breath Sounds, No Respiratory Distress, No Accessory Muscle Use Neck: Yes: No masses,lesions,Nodules, Supple, Trachea in good position Breast: Yes: Breast Exam Deferred Cardiology: Yes: Regular Rhythm, Regular Rate, S1, S2 Abdominal: Yes: Normal Bowel Sounds, Non Tender, Soft Genitourinary: Yes: Within Normal Limits Back: Yes: Normal Inspection Musculoskeletal: Yes: Other (unsteady gait) Extremities: Yes: Normal Capillary Refill, Normal Range of Motion, Non-Tender, Tremors (felt) 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: Yes: Fully Oriented, Alert, Motor Strength 5/5, Depressed Affect Integumentary: Yes: Cold (cool), Other (resolving ecchymosis to both ble) Lymphatic: Yes: Within Normal Limits - Diagnostic (1) Homeless Current Visit: Yes Status: Suspected (2) Cachectic Current Visit: Yes Status: Chronic (3) At risk for dehydration due to poor fluid intake Current Visit: Yes Status: Acute (4) Alcohol dependence with uncomplicated withdrawal Current Visit: Yes Status: Acute (5) Drug-induced mood disorder Current Visit: Yes Status: Suspected (6) Nicotine dependence Current Visit: Yes Status: Chronic Qualifiers: Nicotine product type: cigarettes Substance use status: in withdrawal Qualified Code(s): F17.213 - Nicotine dependence, cigarettes, with withdrawal (7) Seizure disorder Current Visit: Yes Status: Acute Comment: r/t etoh withdrawal (8) Asthma Current Visit: Yes Status: Chronic (9) HTN (hypertension) Current Visit: Yes Status: Chronic Qualifiers: Hypertension type: essential hypertension Qualified Code(s): I10 - Essential (primary) hypertension (10) Bipolar disorder Current Visit: Yes Status: Chronic Qualifiers: Active/Remission status: remission status unspecified Qualified Code(s): F31.9 - Bipolar disorder, unspecified (11) Schizophrenia Current Visit: Yes Status: Chronic Qualifiers: Schizophrenia type: unspecified Qualified Code(s): F20.9 - Schizophrenia, unspecified Cleared for Admission [facility] - Detox or Rehab [facility] Level of Care: Medically Managed Claeared for Rehab Admission: No Breathalyzer - Breathalyzer Breathalyzer: 0 Urine Drug Screen - Test Device Lot number: [id number] Expiration date: 12/22/20 - Control Is test valid?: Yes - Results Drug screen NEGATIVE: No Urine drug screen results: THC-Marijuana, BZO-Benzodiazepines Inpatient Rehab Admission - Rehab Decision to Admit Inpatient rehab admission?: No
[2019-04-18] MEDS ORDERED: ACETAMINOPHEN 325 MG TABLET (FP) PO PRN (23:09)
[2019-04-18] MEDS ORDERED: ALBUTEROL SO4 8 GM HFA INHALER IH PRN (23:09)
[2019-04-18] MEDS ORDERED: DICYCLOMINE HCL 10 MG CAPSULE PO PRN (23:09)
[2019-04-18] MEDS ORDERED: MAGNESIUM CITRATE 300 ML BOTTLE PO PRN (23:09)
[2019-04-18] MEDS ORDERED: MAG HYDROX/AL HYDROX/SIMETH 30 ML UNIT-DOSE CUP PO PRN (23:09)
[2019-04-18] MEDS ORDERED: MENTHOL/PHENOL 1 EACH UD MM PRN (23:09)
[2019-04-18] MEDS ORDERED: chlordiazePOXIDE HCL 25 MG CAPSULE PO PRN (23:09)
[2019-04-18] MEDS ORDERED: P-EPHED 60MG/TRIPROLIDI 2.5MG TABLET PO PRN (23:09)
[2019-04-18] MEDS ORDERED: ONDANSETRON *ODT* 4 MG TABLET SL PRN (23:09)
[2019-04-18] MEDS ORDERED: BISMUTH SUBSALICYLATE 524 MG/30 ML UD PO PRN (23:09)
[2019-04-18] MEDS ORDERED: guaiFENesin 200 MG/10 ML 10 ML UNIT-DOSE CUPS PO PRN (23:09)
[2019-04-18] MEDS ORDERED: MAGNESIUM HYDROX 2400MG/30ML ORAL SUSPENSION 30 ML CUP PO PRN (23:09)
[2019-04-19] MEDS: LORazepam 2 MG TABLET PO SCH ×4 (00:20→17:35)
[2019-04-19] MEDS: LORazepam 1 MG TABLET PO PRN (00:22)
[2019-04-19 09:59] LABS: HEMATOCRIT 32.6 % (32.4-45.2); HEMOGLOBIN 10.8 GM/dL (10.7-15.3); MCH 30.9 pg (25.7-33.7); MCHC 33.2 g/dl (32.0-36.0); MEAN PLT VOLUME 8.2 fl (7.5-11.1); PLATELET COUNT 255 K/MM3 (134-434); RDW 12.2 % (11.6-15.6); WHITE BLOOD COUNT 2.6 K/mm3 (4.0-10.0)
[2019-04-19 10:06] LABS: ALBUMIN 3.5 g/dl (3.4-5.0); BILIRUBIN,TOTAL 0.3 mg/dL (0.2-1); CREATININE 0.6 mg/dL (0.55-1.3); POTASSIUM 3.5 mmol/L (3.5-5.1); TOT PROT 8.1 g/dl (6.4-8.2)
[2019-04-19] MEDS: PRENATAL VITAMINS W/ FOLIC ACID TABLET (FP) PO SCH (10:41)
[2019-04-19] MEDS: METHOCARBAMOL 500 MG TABLET PO PRN ×3 (10:43→22:51)
[2019-04-19] MEDS: NICOTINE 14 MG/24 HOURS TOPICAL PATCH TD SCH (11:03)
--- NOTE | 2019-04-19 12:27 | EKG ---
Test Reason : Blood Pressure : / mmHG Vent. Rate : 061 BPM Atrial Rate : 061 BPM P-R Int : 126 ms QRS Dur : 084 ms QT Int : 454 ms P-R-T Axes : 051 009 039 degrees QTc Int : 457 ms NORMAL SINUS RHYTHM POSSIBLE LEFT ATRIAL ENLARGEMENT LEFT VENTRICULAR HYPERTROPHY CANNOT RULE OUT SEPTAL INFARCT (CITED ON OR BEFORE 14-APR-2017) ABNORMAL ECG WHEN COMPARED WITH ECG OF 10-FEB-2018 13:57, NO SIGNIFICANT CHANGE WAS FOUND Confirmed by CLAY LORA, JONEL ([id number]) on 04/19/2019 12:27:16 PM Referred By: Confirmed By:JONEL WILLIAMSON MD
--- NOTE | 2019-04-19 14:52 | CONSULT ---
[facility] Psychiatric Consult - Data Date of interview: 04/19/19 Admission source: [facility] Identifying data: Readmission to [facility] for this 43 y/o AA female self- referred for detoxification (alcohol). Interviewed at [address] [place] [address]. Patient is , no children, homeless, unemployed and supported on SSI benefits. Substance Abuse History: Discussed in this session. Patient admits to continuous abuse of cacaine, alcohol and cannabis. Details in current [facility] report as follows : Smoking history: Current every day smoker. Have you smoked in the past 12 months: Yes. Aproximately how many cigarettes per day: 10. Cigars Per Day: 0. Hx Chewing Tobacco Use: No. Initiated information on smoking cessation: Yes. 'Breaking Loose' booklet given: 04/18/19. - Substance & Tx. History. Hx Alcohol Use: Yes. Hx Substance Use: Yes. Substance Use Type : Alcohol, Marijuana. Hx Substance Use Treatment: Yes ([facility] - Substances abused. Alcohol. Substance route: Oral. Frequency: Daily. Amount used: 1 case- 24 ounces of beer. Age of first use: 17. Date of last use: 04/17/19. * * Marijuana/Hashish. Substance route: Smoking. Frequency: 1-2 times per week. Amount used: half of a blunt. Age of first use: 16. Date of last use: . Cocaine. Substance route: Inhalation. Frequency: 3-6 times per week. Amount used: 2 bags. Age of first use: 14. Date of last use: 04/17/19 Medical History: Medical profile is remarkable for bronchial asthma, anemia, weight loss, uterine fibroids, hypertension, antecedent of CVA (2002), leiomyoma , human papillovirus and history of withdrawal-related seizures. Psychiatric History: First psychiatric hospitalization occurred seven years ago. The patient was diagnosed with Bipolar Disorder and ADHD (established during childhood). Ms Chang is known to [facility]). She presents with a chronic history of non-adherence to medications and OPD care (has been lost to follow up). Patient used to be under the care of Dr Yoon, psychiatrist at the [facility] outpatient rehabilitation program in the [place]. Was managed with a regimen of celexa 20 mg/day + seroquel 300 mg/ hs + vistaril prn. No medication intake for months. Patient denies history of suicide attempts. Physical/Sexual Abuse/Trauma History: Not discussed. Patient declines. Additional Comment: Urine drug screen results: THC-Marijuana, BZO- Benzodiazepines. Noted. Mental Status Exam - Mental Status Exam Alert and Oriented to: Time, Place, Person Cognitive Function: Good Patient Appearance: Well Groomed (thin habitus, frail appearance) Mood: Nervous, Withdrawn, Anxious Affect: Mood Congruent, Constricted Patient Behavior: Fatigued, Appropriate, Cooperative Speech Pattern: Clear, Appropriate Voice Loudness: Normal Thought Process: Intact, Goal Oriented Thought Disorder: Not Present Hallucinations: Denies Suicidal Ideation: Denies Homicidal Ideation: Denies Insight/Judgement: Poor Sleep: Poorly, Difficulty falling asleep Appetite: Poor, Weight loss Gait/Station: Normal Psychiatric Findings - Problem List ([place] 1, 2,3) (1) Alcohol dependence with uncomplicated withdrawal Current Visit: Yes Status: Acute (2) Cannabis dependence Current Visit: Yes Status: Chronic (3) Cocaine dependence, uncomplicated Current Visit: Yes Status: Chronic (4) Nicotine dependence Current Visit: Yes Status: Chronic Qualifiers: Nicotine product type: cigarettes Substance use status: in withdrawal Qualified Code(s): F17.213 - Nicotine dependence, cigarettes, with withdrawal (5) Drug-induced mood disorder Current Visit: Yes Status: Chronic (6) Bipolar disorder Current Visit: Yes Status: Chronic Qualifiers: Active/Remission status: remission status unspecified Qualified Code(s): F31.9 - Bipolar disorder, unspecified (7) Non-compliance Current Visit: Yes Status: Chronic (8) Insomnia Current Visit: Yes Status: Chronic - Initial Treatment Plan Initial Treatment Plan: Psychoeducation. Sleep hygiene. Detoxification. Support. AA meetings. Patient declines medications other than lorazepam for detoxification purposes. Observation.
[2019-04-19] MEDS: hydrOXYzine PAMOATE 25 MG CAPSULE (FP) PO PRN (15:14)
--- NOTE | 2019-04-19 16:00 | PN ---
S CIWA - CIWA Score Nausea/Vomitin Muscle Tremors: 3 Anxiety: 3 Agitation: 0-Normal Activity Paroxysmal Sweats: 3 Orientation: 0-Oriented Tacttile Disturbances: 1-Very Mild Itch/Numbness Auditory Disturbances: 0-None Visual Disturbances: 2-Mild Sensitivity Headache: 3-Moderate CIWA-Ar Total Score: 20 S Progress Note (SOAP) Subjective: Vomiting, Diarrhea, Anxious, H/A, Fatigue, Tremors, Chills. Objective: PATIENT A & O X 3. IN NO ACUTE DISTRESS. 04/19/19 15:59 Vital Signs Temperature 98.4 F 04/19/19 13:07 Pulse Rate 67 04/19/19 13:07 Respiratory Rate 18 04/19/19 13:07 Blood Pressure 111/70 04/19/19 13:07 O2 Sat by Pulse Oximetry (%) Laboratory Tests 04/18/19 04/19/19 04/19/19 22:32 07:00 07:00 WBC 2.6 L RBC 3.50 L Hgb 10.8 Hct 32.6 MCV 93.0 MCH 30.9 MCHC 33.2 RDW 12.2 Plt Count 255 D MPV 8.2 D Sodium 138 Potassium 3.5 Chloride 103 Carbon Dioxide 29 Anion Gap 7 L BUN 9.0 Creatinine 0.6 Est GFR (CKD-EPI)AfAm 130.30 Est GFR (CKD-EPI)NonAf 112.42 Random Glucose 92 Calcium 9.0 Total Bilirubin 0.3 AST 39 H ALT 23 Alkaline Phosphatase 107 Total Protein 8.1 Albumin 3.5 POC Urine HCG, Qual Negative RPR Titer 04/19/19 07:00 WBC RBC Hgb Hct MCV MCH MCHC RDW Plt Count MPV Sodium Potassium Chloride Carbon Dioxide Anion Gap BUN Creatinine Est GFR (CKD-EPI)AfAm Est GFR (CKD-EPI)NonAf Random Glucose Calcium Total Bilirubin AST ALT Alkaline Phosphatase Total Protein Albumin POC Urine HCG, Qual RPR Titer Nonreactive LABS NOTED. PATIENT HAS HAD LOW WBC LEVELS ON PREVIOUS ADMISSIONS. 04/19/19 16:00 Assessment: 04/19/19 16:00 WITHDRAWAL SYMPTOMS. LEUKOPENIA. HYPERTENSION (INTERMITTENT). 04/19/19 16:03 Plan: CONTINUE DETOX. INCREASE DAILY PO WATER INTAKE. PRN ZOFRAN SL FOR NAUSEA / VOMITING. PRN PEPTO-BISMOL PO FOR DIARREHA. PATIENT REPORTS HISTORY OF BEING PRESCRIBED CLONIDINE OIN OUTPATIENT BASIS FOR TREATMENT OF HYPERTENSION. PATIENT'S BP READINGS THUS FAR HAVE FLUCTUATING CONSIDERABLY. CLONIDINE, 0.1 MG PO TO BE ORDERED PRN FOR ELEVATED BLOOD PRESSURE FOR TIME BEING. WILL CONTINUE TO MONITOR BLOOD PRESSURE.
[2019-04-19] MEDS: cloNIDine HCL 0.1 MG TABLET PO PRN (17:35)
[2019-04-19] MEDS: THIAMINE HCL 100 MG TABLET (FP) PO SCH (22:10)
[2019-04-19] MEDS: LORazepam 1 MG TABLET PO SCH (22:10)
[2019-04-19] MEDS ORDERED: chlordiazePOXIDE HCL 25 MG CAPSULE PO SCH (23:00)
[2019-04-20] MEDS: LORazepam 1 MG TABLET PO PRN (00:40)
[2019-04-20] MEDS: MELATONIN 5 MG TABLETS PO PRN ×2 (00:40→22:12)
[2019-04-20] MEDS: LORazepam 1 MG TABLET PO SCH ×3 (05:49→17:34)
[2019-04-20] MEDS: cloNIDine HCL 0.1 MG TABLET PO PRN ×2 (05:50→10:11)
[2019-04-20] MEDS: IBUPROFEN 400 MG TABLET (FP) PO PRN ×2 (05:51→14:15)
[2019-04-20] MEDS: hydrOXYzine PAMOATE 25 MG CAPSULE (FP) PO PRN ×3 (08:40→23:30)
[2019-04-20] MEDS: PRENATAL VITAMINS W/ FOLIC ACID TABLET (FP) PO SCH (10:10)
[2019-04-20] MEDS: NICOTINE 14 MG/24 HOURS TOPICAL PATCH TD SCH (10:10)
--- NOTE | 2019-04-20 15:33 | PN ---
S CIWA - CIWA Score Nausea/Vomitin Muscle Tremors: 2 Anxiety: 3 Agitation: 1-Slight > Activity Paroxysmal Sweats: 3 Orientation: 0-Oriented Tacttile Disturbances: 0-None Auditory Disturbances: 0-None Visual Disturbances: 1-Very Mild Sensitivity Headache: 3-Moderate CIWA-Ar Total Score: 16 S Progress Note (SOAP) Subjective: Nausea, Anxious, Sweating, Tremors, H/A. Objective: PATIENT A & O X 3, OBSERVED AMBULATING ON UNIT UNASSISTED. IN NO ACUTE DISTRESS. 04/20/19 15:34 Vital Signs Temperature 97.4 F L 04/20/19 13:12 Pulse Rate 79 04/20/19 13:12 Respiratory Rate 18 04/20/19 13:12 Blood Pressure 130/89 04/20/19 13:12 O2 Sat by Pulse Oximetry (%) Laboratory Tests 04/18/19 04/19/19 04/19/19 22:32 07:00 07:00 WBC 2.6 L RBC 3.50 L Hgb 10.8 Hct 32.6 MCV 93.0 MCH 30.9 MCHC 33.2 RDW 12.2 Plt Count 255 D MPV 8.2 D Sodium 138 Potassium 3.5 Chloride 103 Carbon Dioxide 29 Anion Gap 7 L BUN 9.0 Creatinine 0.6 Est GFR (CKD-EPI)AfAm 130.30 Est GFR (CKD-EPI)NonAf 112.42 Random Glucose 92 Calcium 9.0 Total Bilirubin 0.3 AST 39 H ALT 23 Alkaline Phosphatase 107 Total Protein 8.1 Albumin 3.5 POC Urine HCG, Qual Negative RPR Titer 04/19/19 07:00 WBC RBC Hgb Hct MCV MCH MCHC RDW Plt Count MPV Sodium Potassium Chloride Carbon Dioxide Anion Gap BUN Creatinine Est GFR (CKD-EPI)AfAm Est GFR (CKD-EPI)NonAf Random Glucose Calcium Total Bilirubin AST ALT Alkaline Phosphatase Total Protein Albumin POC Urine HCG, Qual RPR Titer Nonreactive LABS NOTED. Assessment: 04/20/19 15:34 WITHDRAWAL SYMPTOMS. HYPERTENSION. LEUKOPENIA. 04/20/19 15:35 Plan: CONTINUE DETOX. CLONIDINE, 0.1 MG PO BID FOR ELEVATED BLOOD PRESSURE (PATIENT REPORTS HISTORY OF PRESCRIPTION OF CLONIDINE FOR HYPERTENSION ON OUTPATIENT BASIS). CONTINUE TO MONITOR BLOOD PRESSURE. PRN ZOFRAN SL FOR NAUSEA.
[2019-04-20] MEDS: cloNIDine HCL 0.1 MG TABLET PO SCH (22:11)
[2019-04-20] MEDS: THIAMINE HCL 100 MG TABLET (FP) PO SCH (22:11)
[2019-04-20] MEDS: LORazepam 0.5 MG TABLET PO SCH (22:11)
[2019-04-20] MEDS ORDERED: LORazepam 0.5 MG TABLET PO PRN (23:00)
[2019-04-20] MEDS ORDERED: chlordiazePOXIDE HCL 10 MG CAPSULE PO SCH (23:00)
[2019-04-20] MEDS ORDERED: chlordiazePOXIDE HCL 10 MG CAPSULE PO PRN (23:00)
[2019-04-20] MEDS: METHOCARBAMOL 500 MG TABLET PO PRN (23:30)
[2019-04-21] MEDS: LORazepam 0.5 MG TABLET PO SCH ×4 (05:27→22:22)
[2019-04-21] MEDS: hydrOXYzine PAMOATE 25 MG CAPSULE (FP) PO PRN ×2 (05:28→17:29)
[2019-04-21] MEDS: IBUPROFEN 400 MG TABLET (FP) PO PRN (07:18)
[2019-04-21] MEDS: NICOTINE POLACRILEX 2 MG GUM BUC PRN ×2 (09:01→14:22)
[2019-04-21] MEDS: PRENATAL VITAMINS W/ FOLIC ACID TABLET (FP) PO SCH (09:01)
[2019-04-21] MEDS: NICOTINE 14 MG/24 HOURS TOPICAL PATCH TD SCH (09:01)
[2019-04-21] MEDS: cloNIDine HCL 0.1 MG TABLET PO SCH ×2 (09:01→22:22)
[2019-04-21] MEDS: ACETAMINOPHEN 325 MG TABLET (FP) PO PRN (10:04)
--- NOTE | 2019-04-21 12:57 | PN ---
S CIWA - CIWA Score Nausea/Vomitin-No Nausea/No Vomiting Muscle Tremors: 3 Anxiety: 2 Agitation: 0-Normal Activity Paroxysmal Sweats: 1-Minimal Palms Moist Orientation: 0-Oriented Tacttile Disturbances: 1-Very Mild Itch/Numbness Auditory Disturbances: 0-None Visual Disturbances: 0-None Headache: 2-Mild CIWA-Ar Total Score: 9 BHS Progress Note (SOAP) Subjective: c/o of shakes, chills, sweats Objective: 04/21/19 12:56 Vital Signs Temperature 98.9 F 04/21/19 09:19 Pulse Rate 66 04/21/19 09:19 Respiratory Rate 18 04/21/19 09:19 Blood Pressure 154/107 H 04/21/19 09:19 O2 Sat by Pulse Oximetry (%) Laboratory Last Values WBC 2.6 K/mm3 (4.0-10.0) L 04/19/19 07:00 RBC 3.50 M/mm3 (3.60-5.2) L 04/19/19 07:00 Hgb 10.8 GM/dL (10.7-15.3) 04/19/19 07:00 Hct 32.6 % (32.4-45.2) 04/19/19 07:00 MCV 93.0 fl (80-96) 04/19/19 07:00 MCH 30.9 pg (25.7-33.7) 04/19/19 07:00 MCHC 33.2 g/dl (32.0-36.0) 04/19/19 07:00 RDW 12.2 % (11.6-15.6) 04/19/19 07:00 Plt Count 255 K/MM3 (134-434) D 04/19/19 07:00 MPV 8.2 fl (7.5-11.1) D 04/19/19 07:00 Sodium 138 mmol/L (136-145) 04/19/19 07:00 Potassium 3.5 mmol/L (3.5-5.1) 04/19/19 07:00 Chloride 103 mmol/L (98-107) 04/19/19 07:00 Carbon Dioxide 29 mmol/L (21-32) 04/19/19 07:00 Anion Gap 7 MMOL/L (8-16) L 04/19/19 07:00 BUN 9.0 mg/dL (7-18) 04/19/19 07:00 Creatinine 0.6 mg/dL (0.55-1.3) 04/19/19 07:00 Est GFR (CKD-EPI)AfAm 130.30 04/19/19 07:00 Est GFR (CKD-EPI)NonAf 112.42 04/19/19 07:00 Random Glucose 92 mg/dL (74-106) 04/19/19 07:00 Calcium 9.0 mg/dL (8.5-10.1) 04/19/19 07:00 Total Bilirubin 0.3 mg/dL (0.2-1) 04/19/19 07:00 AST 39 U/L (15-37) H 04/19/19 07:00 ALT 23 U/L (13-61) 04/19/19 07:00 Alkaline Phosphatase 107 U/L (45-117) 04/19/19 07:00 Total Protein 8.1 g/dl (6.4-8.2) 04/19/19 07:00 Albumin 3.5 g/dl (3.4-5.0) 04/19/19 07:00 POC Urine HCG, Qual Negative 04/18/19 22:32 RPR Titer Nonreactive (NONREACTIVE) 04/19/19 07:00 Aox 3 no distress full ROM, ambulating in the unit Assessment: 04/21/19 12:56 withdrawal sx Plan: increase PO fluids continue detox follow up with primary care provider in the community continue to monitor
--- NOTE | 2019-04-21 15:51 | PN ---
[facility] Progress Note Note: Vital Signs - 24 hr 04/20/19 04/20/19 04/21/19 18:08 22:00 00:28 Temperature 96.8 F L 97.1 F L Pulse Rate 92 H 97 H Respiratory 16 18 18 Rate Blood Pressure 112/79 113/85 04/21/19 04/21/19 04/21/19 03:30 06:57 09:19 Temperature 98.0 F 98.9 F Pulse Rate 65 66 Respiratory 16 18 18 Rate Blood Pressure 139/94 154/107 H 04/21/19 14:10 Temperature 98.1 F Pulse Rate 61 Respiratory 18 Rate Blood Pressure 152/93 elevated BP withdrawal sx one time dose clonidine 0.1 mg continue to monitor
[2019-04-21] MEDS ORDERED: cloNIDine HCL 0.1 MG TABLET PO ONE (16:30)
[2019-04-21] MEDS: THIAMINE HCL 100 MG TABLET (FP) PO SCH (22:22)
[2019-04-21] MEDS: MELATONIN 5 MG TABLETS PO PRN (22:22)
[2019-04-21] MEDS ORDERED: chlordiazePOXIDE HCL 10 MG CAPSULE PO SCH (23:00)
[2019-04-22] MEDS: hydrOXYzine PAMOATE 25 MG CAPSULE (FP) PO PRN ×2 (00:48→06:45)
[2019-04-22] MEDS: ACETAMINOPHEN 325 MG TABLET (FP) PO PRN (00:49)
[2019-04-22] MEDS: cloNIDine HCL 0.1 MG TABLET PO SCH ×2 (06:08→10:30)
[2019-04-22 06:18] VITALS: TEMP 96.8
[2019-04-22 09:28] VITALS: BP 138/89; PULSE 78
[2019-04-22] MEDS: PRENATAL VITAMINS W/ FOLIC ACID TABLET (FP) PO SCH (10:29)
[2019-04-22] MEDS: NICOTINE 14 MG/24 HOURS TOPICAL PATCH TD SCH (10:29)
--- NOTE | 2019-04-22 17:16 | DS ---
[facility] Detox Discharge Summary Admission Date: 04/18/19 Discharge Date: 04/22/19 - History Present History: Alcohol Dependence Additional Comments: PATIENT GOING TO [facility] ([place], [place]) FOR AFTERCARE. PATIENT WAS DISCHARGED FROM DETOX UNIT IN STABLE MEDICAL CONDITION. Pertinent Past History: Leukopenia, History of Seizures (Due to Withdrawal), History Of Anemia, HTN, History Of CVA, History Of Cirrhosis Of Liver, Depression, Bipolar Disorder, Schizophrenia, Nicotine Dependence, Insomnia. - Physical Exam Results Vital Signs: Vital Signs Temperature 96.8 F L 04/22/19 09:28 Pulse Rate 78 04/22/19 09:28 Respiratory Rate 18 04/22/19 09:28 Blood Pressure 138/89 04/22/19 09:28 O2 Sat by Pulse Oximetry (%) Pertinent Admission Physical Exam Findings: WITHDRAWAL SYMPTOMS. Laboratory Tests 04/18/19 04/19/19 04/19/19 22:32 07:00 07:00 WBC 2.6 L RBC 3.50 L Hgb 10.8 Hct 32.6 MCV 93.0 MCH 30.9 MCHC 33.2 RDW 12.2 Plt Count 255 D MPV 8.2 D Sodium 138 Potassium 3.5 Chloride 103 Carbon Dioxide 29 Anion Gap 7 L BUN 9.0 Creatinine 0.6 Est GFR (CKD-EPI)AfAm 130.30 Est GFR (CKD-EPI)NonAf 112.42 Random Glucose 92 Calcium 9.0 Total Bilirubin 0.3 AST 39 H ALT 23 Alkaline Phosphatase 107 Total Protein 8.1 Albumin 3.5 POC Urine HCG, Qual Negative RPR Titer 04/19/19 07:00 WBC RBC Hgb Hct MCV MCH MCHC RDW Plt Count MPV Sodium Potassium Chloride Carbon Dioxide Anion Gap BUN Creatinine Est GFR (CKD-EPI)AfAm Est GFR (CKD-EPI)NonAf Random Glucose Calcium Total Bilirubin AST ALT Alkaline Phosphatase Total Protein Albumin POC Urine HCG, Qual RPR Titer Nonreactive LABS NOTED. - Treatment Hospital Course: Detox Protocol Followed, Detoxed Safely, Responded well, Discharged Condition Good, Rehab Referral Accepted Patient has Accepted a Rehab Referral to: [facility] ([place], [place]). - Medication Discharge Medications: Ambulatory Orders Citalopram Hydrobromide [Celexa -] 20 mg PO DAILY 02/10/18 Quetiapine Fumarate [Seroquel] 300 mg PO DAILY 02/10/18 Albuterol Sulfate Inhaler - [Ventolin HFA Inhaler -] 2 inh PO Q4H PRN #1 inhaler 02/13/18 hydrOXYzine PAMOATE [Vistaril -] 25 mg PO DAILY 04/18/19 - Diagnosis (1) Alcohol dependence with uncomplicated withdrawal Status: Acute (2) At risk for dehydration due to poor fluid intake Status: Acute (3) Leukopenia Status: Acute Qualifiers: Leukopenia type: unspecified Qualified Code(s): D72.819 - Decreased white blood cell count, unspecified (4) Seizure disorder Status: Acute (5) Asthma Status: Chronic (6) Bipolar disorder Status: Chronic Qualifiers: Active/Remission status: remission status unspecified Qualified Code(s): F31.9 - Bipolar disorder, unspecified (7) Cachectic Status: Chronic (8) Drug-induced mood disorder Status: Chronic (9) HTN (hypertension) Status: Chronic Qualifiers: Hypertension type: essential hypertension Qualified Code(s): I10 - Essential (primary) hypertension (10) Nicotine dependence Status: Chronic Qualifiers: Nicotine product type: cigarettes Substance use status: in withdrawal Qualified Code(s): F17.213 - Nicotine dependence, cigarettes, with withdrawal (11) Schizophrenia Status: Chronic Qualifiers: Schizophrenia type: unspecified Qualified Code(s): F20.9 - Schizophrenia, unspecified (12) Homeless Status: Suspected (13) Insomnia Status: Chronic Qualifiers: Insomnia type: unspecified Qualified Code(s): G47.00 - Insomnia, unspecified (14) Non-compliance Status: Chronic - AMA Did Patient Leave Against Medical Advice: No
== END 2019-04-22 11:35 | disposition home or self-care (01) | DRG 774 ==
LOC: YASAS 18:26 → Y3N 23:33
PROVIDERS: ADMIT Surgery; ATTEND Surgery
PROC: HZ2ZZZZ Detoxification Services for Substance Abuse Treatment (ICD-10-PCS; principal; 2019-04-18)
DX: F10.230 Alcohol dependence with withdrawal, uncomplicated (principal); F14.20 Cocaine dependence, uncomplicated; F12.20 Cannabis dependence, uncomplicated; F17.213 Nicotine dependence, cigarettes, with withdrawal; F19.24 Other psychoactive substance dependence with psychoactive substance-induced mood disorder; F31.9 Bipolar disorder, unspecified; F20.9 Schizophrenia, unspecified; I10 Essential (primary) hypertension; D64.9 Anemia, unspecified; R63.8 Other symptoms and signs concerning food and fluid intake; E73.9 Lactose intolerance, unspecified; D72.819 Decreased white blood cell count, unspecified; J45.909 Unspecified asthma, uncomplicated; K74.60 Unspecified cirrhosis of liver; G47.00 Insomnia, unspecified; R64 Cachexia; Z88.6 Allergy status to analgesic agent; Z91.14 Patient's other noncompliance with medication regimen; Z86.69 Personal history of other diseases of the nervous system and sense organs; Z86.73 Personal history of transient ischemic attack (TIA), and cerebral infarction without residual deficits; Z59.0 Homelessness
CPT/HCPCS: 36415; 80053; 81025; 85027; 86593; 93005; 93010; J0735

== ENCOUNTER 2019-05-08 11:11 | Inpatient (IN) | payer OTHER ==
[2019-05-08 13:19] VITALS: BMI 19.5
--- NOTE | 2019-05-08 16:26 | HP ---
CIWA Score Nausea/Vomitin Muscle Tremors: 4-Moderate,w/Arms Extend Anxiety: 4-Mod. Anxious/Guarded Agitation: 4-Moderately Restless Paroxysmal Sweats: 3 (Increased facial moisture) Orientation: 1-Uncertain about Date Tacttile Disturbances: 1-Very Mild Itch/Numbness Auditory Disturbances: 0-None Visual Disturbances: 0-None Headache: 3-Moderate CIWA-Ar Total Score: 23 - Admission Criteria OASAS Guidelines: Admission for Medically Managed Detox: Requires at least one of the followin. CIWA greater than 12 2. Seizures within the past 24 hours 3. Delirium tremens within the past 24 hours 4. Hallucinations within the past 24 hours 5. Acute intervention needed for co occurring medical disorder 6. Acute intervention needed for co occurring psychiatric disorder 7. Severe withdrawal that cannot be handled at a lower level of care (continued vomiting, continued diarrhea, abnormal vital signs) requiring intravenous medication and/or fluids 8. Patient presents the following: CIWA greater than 12 Admission Criteria Met: Admission criteria met Admission ROS [facility] Chief Complaint: Having alcohol withdrawal symptoms. Allergies/Adverse Reactions: Allergies Allergy/AdvReac Type Severity Reaction Status Date / Time aspirin AdvReac Severe HEAVY Verified 05/08/19 13:05 MENSES lactose AdvReac Intermediate Nausea Verified 05/08/19 13:05 Lactose Intolerant AdvReac Intermediate Nausea Uncoded 05/08/19 13:05 History of Present Illness: 43 Y.O presents w/ alcohol withdrawal symptoms requesting detox. Has had multiple admissions for detox and rehab at many locations. Last discharged from [facility] detox on 04/22/19. She reports relapsing immediately after d/c an has been drinking daily. Requesting Ativan Detox. Last drink earlier today and presented w/ a BRITTNEE of 0.263. Current BRITTNEE:0.141 Utox: +THC/BZO HCG: Neg (States LMP 2 months ago) Hx: withdrawal seizures, black outs. Last seizure March 2019 Alcohol use began at age 17. Lots of Beer and liquor, Marijuana use began at age 16. Stopped for years and restarted about 2 years ago. Minimal current use. Cocaine rigoberto Nicotine use began at age 41. Current use 1 PPD. Declines patch - will accept gum Currently homeless. PMHx: HTN, anemia; fibroid uterus; asthma- last exacerbation today; Gout in (L) knee - (on 800 mg ibuprofen), hx CVA; traumatic brain injury- head tumor (CT scan - neg), Hx abn EKG. No significant changes from ones on 02/10/18 and 04/18/19 EKG's. MHHx: Insomnia, Anxiety, Bi-polar. Last visit 2 months ago. Denies thoughts of harming self or others. States currently taking only Seroquel - not for sleep - causes headaches and increased insomnia. Has stopped taking other medications Search Terms: Yasmin Chang, 1975 Search Date: 05/08/2019 04:47:46 PM The Drug Utilization Report below displays all of the controlled substance prescriptions, if any, that your patient has filled in the last twelve months. The information displayed on this report is compiled from pharmacy submissions to the Department, and accurately reflects the information as submitted by the pharmacies. This report was requested by: Elizabet Valerio | Reference #: [id number] There are no results for the search terms that you entered. Search Terms: Yasmin Chang, 1975 Search Date: 05/08/2019 04:48:16 PM States Searched: [place], [place], [place], [place], [place], [place], [place] The Drug Utilization Report below displays the controlled substance prescriptions, if any, that were dispensed in the indicated state(s). The information displayed on this report is compiled from requests submitted to other states' PMPs, and accurately reflects the information as returned by them. Blank ernst indicate data not provided by other state. This report was requested by: Elizabet Valerio | Reference #: [id number] Exam Limitations: Other (Difficulty staying focused) - Ebola screening Have you traveled outside of the country in the last 21 days: No Have you had contact with anyone from an Ebola affected area: No Have you been sick,other than usual withdrawal symptoms: No (Denies recent exposure to measles) Do you have a fever: No - Review of Systems Constitutional: Diaphoresis, Changes in sleep (Difficulty falling asleep) EENT: reports: Blurred Vision, Other (Lazy eye, past nasal fracture) Respiratory: reports: Shortness of Breath (Used albuteral inhaler earlier), Hemoptysis (States coughing up blood for past 2 days) Cardiac: reports: No Symptoms Reported GI: reports: Blood Streaked Bowels (Intermittent), Nausea : reports: No Symptoms Reported Musculoskeletal: reports: Back Pain (Chronic achy/sharp low back pain "8". Increases when stops driking), Gout ((L) knee), Joint Pain (Knees, elbows, ankles,) Integumentary: reports: Bruising ((L) flank) Neuro: reports: Headache, Tremors, Unsteady Gait Endocrine: reports: No Symptoms Reported Hematology: reports: Anemia (low iron) Psychiatric: reports: Agitated, Anxious, other (Unsure of date) Patient History - Patient Medical History Hx Anemia: Yes (TAKES MULTIVITAMINS WITH IRON.) Hx Asthma: Yes (Uses Albuterol Inhaler.) Hx Chronic Obstructive Pulmonary Disease (COPD): No Hx Cancer: No Hx Cardiac Disorders: Yes (HTN.) Hx Congestive Heart Failure: No Hx Hypertension: Yes (Non-Compliant meds.) Hx Hypercholesterolemia: No Hx Pacemaker: No HX Cerebrovascular Accident: Yes (IN 2002--TREATED AT [facility]) Hx Seizures: Yes (alcohol related-last episode was apporx. 1 weel ago.) Hx Dementia: No Hx Diabetes: No Hx Gastrointestinal Disorders: No Hx Liver Disease: Yes (Cirrhosis.) Hx Genitourinary Disorders: No Hx Sexually Transmitted Disorders: No Hx Renal Disease (ESRD): No Hx Thyroid Disease: No Hx Human Immunodeficiency Virus (HIV): No (Last Tested approx. 1 year ago: NEGATIVE.) Hx Hepatitis C: No (Never Tested.) Hx Depression: Yes Hx Suicide Attempt: No (PATIENT DENIES CURRENT SI / HI.) Hx Bipolar Disorder: Yes (On med.) Hx Schizophrenia: Yes - Patient Surgical History Past Surgical History: Yes Hx Neurologic Surgery: No Hx Cataract Extraction: No Hx Cardiac Surgery: No Hx Lung Surgery: No Hx Breast Surgery: No Hx Breast Biopsy: No Hx Abdominal Surgery: No Hx Appendectomy: No Hx Cholecystectomy: No Hx Genitourinary Surgery: No Hx Section: No Hx Orthopedic Surgery: No Other Surgical History: Removal of Uterine Fibroid - 2013; 2 Abortions (during 20's). Anesthesia Reaction: No - PPD History Previous Implant?: Yes Documented Results: Negative w/proof Implanted On Prior [facility] Admission?: Yes Date: 04/16/17 Results: 0 mm PPD to be Administered?: Yes - Reproductive History Patient is a Female of Child Bearing Age (11 -55 yrs old): Yes Last Menstrual Period: 03/12/19 Patient : No - Smoking Cessation Smoking history: Current every day smoker Have you smoked in the past 12 months: Yes Aproximately how many cigarettes per day: 20 Cigars Per Day: 0 Hx Chewing Tobacco Use: No Initiated information on smoking cessation: Yes 'Breaking Loose' booklet given: 05/08/19 - Substance & Tx. History Hx Alcohol Use: Yes Hx Substance Use: Yes Substance Use Type: Alcohol, Cocaine, Marijuana Hx Substance Use Treatment: Yes (multiple detoxes and rehabs) - Substances abused Alcohol Substance route: Oral Frequency: Daily Amount used: 1 case- 24 ounces of beer Age of first use: 17 Date of last use: 05/08/19 Marijuana/Hashish Substance route: Smoking Frequency: 1-2 times per week Amount used: half of a blunt Age of first use: 16 Date of last use: 04/13/19 Cocaine Substance route: Inhalation Frequency: 3-6 times per week Amount used: 2 bags Age of first use: 14 Date of last use: 04/18/19 Family Disease History - Family Disease History Family Disease History: Heart Disease: Mother (OPEN HEART SX, SUBSTANCE ABUSE. .), CA: Grandparent (BREAST--), Other: Father (AIDS; SUBSTANCE ABUSE; .), Mother Admission Physical Exam S - Vital Signs Vital Signs: Vital Signs - 24 hr 05/08/19 05/08/19 13:11 13:42 Temperature 98.4 F 98.4 F Pulse Rate 107 H 107 H Respiratory 17 17 Rate Blood Pressure 122/84 122/84 - Physical General Appearance: Yes: Moderate Distress, Intoxicated (BRITTNEE from 0.263 to 0.141 ), Tremorous, Sweating (Increased facial moisture), Anxious HEENTM: Yes: EOMI (Jerking movement of eyes upon lateral gaze), Hearing grossly Normal, Normocephalic, Normal Voice, ARMAND, Pharynx Normal Respiratory: Yes: Lungs Clear, Normal Breath Sounds, No Respiratory Distress Neck: Yes: No masses,lesions,Nodules, Supple Breast: Yes: Breast Exam Deferred Cardiology: Yes: Regular Rhythm, S1, S2, Tachycardia (HR: 102) Abdominal: Yes: Non Tender (tenderness), Flat, Soft, Increased Bowel Sounds Genitourinary: Yes: Within Normal Limits Back: Yes: Vertebral Tenderness (No lesions, no masses) Musculoskeletal: Yes: Other (Crepitus both knees. Tenderness (L) knee w flexion. 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 NML intact (Jerking movement of eyes upon lateral gaze), Alert, Motor Strength 5/5, Other (Crying, agitated) Integumentary: Yes: Normal Color, Warm Lymphatic: Yes: Within Normal Limits - Diagnostic (1) History of asthma Current Visit: Yes Status: Chronic (2) Alcohol dependence with uncomplicated withdrawal Current Visit: Yes Status: Acute (3) Cannabis dependence Current Visit: Yes Status: Chronic (4) HTN (hypertension) Current Visit: Yes Status: Chronic Qualifiers: Hypertension type: essential hypertension Qualified Code(s): I10 - Essential (primary) hypertension (5) History of uterine fibroid Current Visit: No Status: Chronic (6) Nicotine dependence Current Visit: Yes Status: Chronic Qualifiers: Nicotine product type: cigarettes Substance use status: in withdrawal Qualified Code(s): F17.213 - Nicotine dependence, cigarettes, with withdrawal (7) History of hemoptysis Current Visit: No Status: Chronic Comment: States occ coughs up blood. Treated w/ pepcid in past. Cleared for Admission [facility] - Detox or Rehab [facility] Level of Care: Medically Managed Detox Regimen/Protocol: Not Applicable (ATIVAN ) Claeared for Rehab Admission: No Breathalyzer - Breathalyzer Breathalyzer: 0.263 (@ 1130) Urine Drug Screen - Test Device Lot number: [id number] Expiration date: 02/21/21 - Control Is test valid?: Yes - Results Drug screen NEGATIVE: No Urine drug screen results: THC-Marijuana, BZO-Benzodiazepines Inpatient Rehab Admission - Rehab Decision to Admit Inpatient rehab admission?: No
[2019-05-08] MEDS ORDERED: IBUPROFEN 400 MG TABLET (FP) PO PRN (17:32)
[2019-05-08] MEDS ORDERED: chlordiazePOXIDE HCL 25 MG CAPSULE PO PRN (17:32)
[2019-05-08] MEDS ORDERED: MENTHOL/PHENOL 1 EACH UD MM PRN (17:32)
[2019-05-08] MEDS ORDERED: MAGNESIUM CITRATE 300 ML BOTTLE PO PRN (17:32)
[2019-05-08] MEDS ORDERED: ACETAMINOPHEN 325 MG TABLET (FP) PO PRN (17:32)
[2019-05-08] MEDS ORDERED: MAG HYDROX/AL HYDROX/SIMETH 30 ML UNIT-DOSE CUP PO PRN (17:32)
[2019-05-08] MEDS ORDERED: MAGNESIUM HYDROX 2400MG/30ML ORAL SUSPENSION 30 ML CUP PO PRN (17:32)
[2019-05-08] MEDS ORDERED: ALBUTEROL SO4 0.083% IH SOL 2.5 MG/3 ML VIAL.NEB. NEB PRN (17:41)
[2019-05-08] MEDS ORDERED: ALBUTEROL SO4 8 GM HFA INHALER IH PRN (17:42)
[2019-05-08] MEDS ORDERED: LORazepam 1 MG TABLET PO PRN (17:45)
[2019-05-08] MEDS ORDERED: LORazepam 2 MG TABLET PO ONE (18:30)
[2019-05-08] MEDS: cloNIDine HCL 0.1 MG TABLET PO SCH (22:02)
[2019-05-08] MEDS: THIAMINE HCL 100 MG TABLET (FP) PO SCH (22:02)
[2019-05-08] MEDS: LORazepam 2 MG TABLET PO SCH (22:02)
[2019-05-08] MEDS: PANTOPRAZOLE 20 MG TABLET (FP) PO SCH (22:02)
[2019-05-08] MEDS: MELATONIN 5 MG TABLETS PO PRN (22:03)
[2019-05-08] MEDS ORDERED: chlordiazePOXIDE HCL 25 MG CAPSULE PO SCH (23:00)
[2019-05-09] MEDS: LORazepam 2 MG TABLET PO SCH ×4 (05:21→22:23)
[2019-05-09] MEDS: cloNIDine HCL 0.1 MG TABLET PO SCH ×3 (07:54→22:23)
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
[2019-05-09] MEDS: PRENATAL VITAMINS W/ FOLIC ACID TABLET (FP) PO SCH (10:28)
[2019-05-09] MEDS: PANTOPRAZOLE 20 MG TABLET (FP) PO SCH ×2 (10:28→22:23)
[2019-05-09] MEDS ORDERED: hydrOXYzine HCL 25 MG TABLET (FP) PO PRN (10:34)
[2019-05-09] MEDS: hydrOXYzine HCL 25 MG TABLET (FP) PO PRN ×2 (11:47→19:05)
[2019-05-09 12:17] LABS: HEMATOCRIT 35.9 % (32.4-45.2); MCH 30.8 pg (25.7-33.7); MCHC 33.4 g/dl (32.0-36.0); MEAN CELL VOLUME 92.3 fl (80-96); MEAN PLT VOLUME 7.9 fl (7.5-11.1); RBC 3.89 M/mm3 (3.60-5.2); RDW 12.6 % (11.6-15.6); WHITE BLOOD COUNT 3.1 K/mm3 (4.0-10.0)
[2019-05-09 12:29] LABS: ALBUMIN 4.1 g/dl (3.4-5.0); BILIRUBIN,TOTAL 0.6 mg/dL (0.2-1); CALCIUM 9.1 mg/dL (8.5-10.1); CREATININE 0.7 mg/dL (0.55-1.3); POTASSIUM 4.2 mmol/L (3.5-5.1); TOT PROT 9.4 g/dl (6.4-8.2)
[2019-05-09 12:29] LABS: EPI CELLS 10.3 /HPF (0-5/HPF); HYALINE CASTS 12 /lpf (0-8); URINE APPEARANCE CLOUDY; URINE BACTERIA 445.6 /hpf (NEGATIVE); URINE BILIRUBIN NEGATIVE (NEGATIVE); URINE COLOR YELLOW; URINE GLUCOSE (UA) NEGATIVE (NEGATIVE); URINE KETONE NEGATIVE (NEGATIVE); URINE LEUK ESTERASE TRACE (NEGATIVE); URINE NITRITE NEGATIVE (NEGATIVE); URINE PROTEIN NEGATIVE (NEGATIVE); URINE UROBILINOGEN 0.2 mg/dL (0.2-1.0); URINE WBC 25 /hpf (0-5)
--- NOTE | 2019-05-09 13:02 | PN ---
S CIWA - CIWA Score Nausea/Vomitin-Mild Nausea/No Vomiting Muscle Tremors: 4-Moderate,w/Arms Extend Anxiety: 4-Mod. Anxious/Guarded Agitation: 4-Moderately Restless Paroxysmal Sweats: 1-Minimal Palms Moist Orientation: 2-Disoriented Date<2 days Tacttile Disturbances: 0-None Auditory Disturbances: 0-None Visual Disturbances: 0-None Headache: 2-Mild CIWA-Ar Total Score: 18 BHS Progress Note (SOAP) Subjective: report long history of hypertension none compliance with antihypertensant when drinking alcohol patient is aware of the risks of bp elevation feeling tired "just want to rest" Objective: 05/09/19 13:01 Vital Signs Temperature 98 F 05/09/19 09:13 Pulse Rate 101 H 05/09/19 09:13 Respiratory Rate 18 05/09/19 09:13 Blood Pressure 162/114 H 05/09/19 09:13 O2 Sat by Pulse Oximetry (%) Laboratory Last Values Sodium 138 mmol/L (136-145) 05/09/19 07:00 Potassium 4.2 mmol/L (3.5-5.1) 05/09/19 07:00 Chloride 102 mmol/L (98-107) 05/09/19 07:00 Carbon Dioxide 30 mmol/L (21-32) 05/09/19 07:00 Anion Gap 7 MMOL/L (8-16) L 05/09/19 07:00 BUN 11.0 mg/dL (7-18) 05/09/19 07:00 Creatinine 0.7 mg/dL (0.55-1.3) 05/09/19 07:00 Est GFR (CKD-EPI)AfAm 123.86 05/09/19 07:00 Est GFR (CKD-EPI)NonAf 106.87 05/09/19 07:00 Random Glucose 86 mg/dL (74-106) 05/09/19 07:00 Uric Acid 6.0 mg/dL (2.6-7.2) 05/09/19 07:00 Calcium 9.1 mg/dL (8.5-10.1) 05/09/19 07:00 Total Bilirubin 0.6 mg/dL (0.2-1) 05/09/19 07:00 AST 37 U/L (15-37) 05/09/19 07:00 ALT 19 U/L (13-61) 05/09/19 07:00 Alkaline Phosphatase 123 U/L (45-117) H 05/09/19 07:00 Total Protein 9.4 g/dl (6.4-8.2) H 05/09/19 07:00 Albumin 4.1 g/dl (3.4-5.0) 05/09/19 07:00 Urine Color Yellow 05/08/19 09:45 Urine Appearance Cloudy 05/08/19 09:45 Urine pH 5.0 (5.0-8.0) 05/08/19 09:45 Ur Specific [place] 1.012 (1.010-1.035) 05/08/19 09:45 Urine Protein Negative (NEGATIVE) 05/08/19 09:45 Urine Glucose (UA) Negative (NEGATIVE) 05/08/19 09:45 Urine Ketones Negative (NEGATIVE) 05/08/19 09:45 Urine Blood Negative (NEGATIVE) 05/08/19 09:45 Urine Nitrite Negative (NEGATIVE) 05/08/19 09:45 Urine Bilirubin Negative (NEGATIVE) 05/08/19 09:45 Urine Urobilinogen 0.2 mg/dL (0.2-1.0) 05/08/19 09:45 Ur Leukocyte Esterase Trace (NEGATIVE) 05/08/19 09:45 Urine WBC (Auto) 25 /hpf (0-5) 05/08/19 09:45 Urine Casts (Auto) 12 /lpf (0-8) 05/08/19 09:45 U Epithel Cells (Auto) 10.3 /HPF (0-5/HPF) 05/08/19 09:45 Urine Bacteria (Auto) 445.6 /hpf (NEGATIVE) 05/08/19 09:45 POC Urine HCG, Qual Negative 05/08/19 13:42 lab noted Assessment: 05/09/19 13:01 alcohol withdrawal sx 05/09/19 13:02 hypertension Plan: continue alcohol detox begin amlodopin and lisinopril
[2019-05-09 13:23] LABS: PLATELET COUNT 254 K/MM3 (134-434)
[2019-05-09] MEDS: amLODIPine BESYLATE 10 MG TABLET (FP) PO SCH (15:03)
[2019-05-09] MEDS: LISINOPRIL 10 MG TABLET (FP) PO SCH ×2 (15:03→22:24)
[2019-05-09 15:31] LABS: URINE RBC 3.6 /hpf (0-4)
[2019-05-09] MEDS: ACETAMINOPHEN 325 MG TABLET (FP) PO PRN (17:21)
[2019-05-09] MEDS: THIAMINE HCL 100 MG TABLET (FP) PO SCH (22:23)
[2019-05-09] MEDS: QUEtiapine FUMARATE 100 MG TABLET (FP) PO SCH (22:23)
[2019-05-09] MEDS: MELATONIN 5 MG TABLETS PO PRN (23:38)
[2019-05-10] MEDS: ACETAMINOPHEN 325 MG TABLET (FP) PO PRN ×3 (04:42→22:25)
[2019-05-10] MEDS ORDERED: chlordiazePOXIDE HCL 25 MG CAPSULE PO SCH (05:00)
[2019-05-10] MEDS: LORazepam 1 MG TABLET PO SCH ×4 (06:52→22:21)
[2019-05-10] MEDS: LISINOPRIL 10 MG TABLET (FP) PO SCH ×2 (11:05→22:22)
[2019-05-10] MEDS: PRENATAL VITAMINS W/ FOLIC ACID TABLET (FP) PO SCH (11:05)
[2019-05-10] MEDS: PANTOPRAZOLE 20 MG TABLET (FP) PO SCH ×2 (11:05→22:22)
[2019-05-10] MEDS: amLODIPine BESYLATE 10 MG TABLET (FP) PO SCH (11:05)
[2019-05-10] MEDS: cloNIDine HCL 0.1 MG TABLET PO SCH ×2 (11:05→22:21)
[2019-05-10] MEDS: METHOCARBAMOL 500 MG TABLET PO PRN (11:05)
[2019-05-10] MEDS: NICOTINE POLACRILEX 2 MG GUM BUC PRN (15:03)
--- NOTE | 2019-05-10 16:31 | PN ---
S CIWA - CIWA Score Nausea/Vomitin Muscle Tremors: 3 Anxiety: 2 Agitation: 3 Paroxysmal Sweats: 1-Minimal Palms Moist Orientation: 0-Oriented Tacttile Disturbances: 0-None Auditory Disturbances: 0-None Visual Disturbances: 0-None Headache: 2-Mild CIWA-Ar Total Score: 13 S Progress Note (SOAP) Subjective: GI distress limited food toleration continue protonix and ensure supplement Objective: 05/10/19 16:34 Vital Signs Temperature 98.0 F 05/10/19 13:19 Pulse Rate 77 05/10/19 13:19 Respiratory Rate 18 05/10/19 13:19 Blood Pressure 125/88 05/10/19 13:19 O2 Sat by Pulse Oximetry (%) Laboratory Last Values WBC 3.1 K/mm3 (4.0-10.0) L 05/09/19 07:00 RBC 3.89 M/mm3 (3.60-5.2) 05/09/19 07:00 Hgb 12.0 GM/dL (10.7-15.3) 05/09/19 07:00 Hct 35.9 % (32.4-45.2) 05/09/19 07:00 MCV 92.3 fl (80-96) 05/09/19 07:00 MCH 30.8 pg (25.7-33.7) 05/09/19 07:00 MCHC 33.4 g/dl (32.0-36.0) 05/09/19 07:00 RDW 12.6 % (11.6-15.6) 05/09/19 07:00 Plt Count 254 K/MM3 (134-434) 05/09/19 07:00 MPV 7.9 fl (7.5-11.1) 05/09/19 07:00 Sodium 138 mmol/L (136-145) 05/09/19 07:00 Potassium 4.2 mmol/L (3.5-5.1) 05/09/19 07:00 Chloride 102 mmol/L (98-107) 05/09/19 07:00 Carbon Dioxide 30 mmol/L (21-32) 05/09/19 07:00 Anion Gap 7 MMOL/L (8-16) L 05/09/19 07:00 BUN 11.0 mg/dL (7-18) 05/09/19 07:00 Creatinine 0.7 mg/dL (0.55-1.3) 05/09/19 07:00 Est GFR (CKD-EPI)AfAm 123.86 05/09/19 07:00 Est GFR (CKD-EPI)NonAf 106.87 05/09/19 07:00 Random Glucose 86 mg/dL (74-106) 05/09/19 07:00 Uric Acid 6.0 mg/dL (2.6-7.2) 05/09/19 07:00 Calcium 9.1 mg/dL (8.5-10.1) 05/09/19 07:00 Total Bilirubin 0.6 mg/dL (0.2-1) 05/09/19 07:00 AST 37 U/L (15-37) 05/09/19 07:00 ALT 19 U/L (13-61) 05/09/19 07:00 Alkaline Phosphatase 123 U/L (45-117) H 05/09/19 07:00 Total Protein 9.4 g/dl (6.4-8.2) H 05/09/19 07:00 Albumin 4.1 g/dl (3.4-5.0) 05/09/19 07:00 Urine Color Yellow 05/08/19 09:45 Urine Appearance Cloudy 05/08/19 09:45 Urine pH 5.0 (5.0-8.0) 05/08/19 09:45 Ur Specific [place] 1.012 (1.010-1.035) 05/08/19 09:45 Urine Protein Negative (NEGATIVE) 05/08/19 09:45 Urine Glucose (UA) Negative (NEGATIVE) 05/08/19 09:45 Urine Ketones Negative (NEGATIVE) 05/08/19 09:45 Urine Blood Negative (NEGATIVE) 05/08/19 09:45 Urine Nitrite Negative (NEGATIVE) 05/08/19 09:45 Urine Bilirubin Negative (NEGATIVE) 05/08/19 09:45 Urine Urobilinogen 0.2 mg/dL (0.2-1.0) 05/08/19 09:45 Ur Leukocyte Esterase Trace (NEGATIVE) 05/08/19 09:45 Urine WBC (Auto) 25 /hpf (0-5) 05/08/19 09:45 Urine RBC (Auto) 3.6 /hpf (0-4) 05/08/19 09:45 Urine Casts (Auto) 12 /lpf (0-8) 05/08/19 09:45 U Pathogenic Cast Auto None seen /lpf (NEGATIVE) 05/08/19 09:45 U Epithel Cells (Auto) 10.3 /HPF (0-5/HPF) 05/08/19 09:45 Urine Bacteria (Auto) 445.6 /hpf (NEGATIVE) 05/08/19 09:45 POC Urine HCG, Qual Negative 05/08/19 13:42 RPR Titer Nonreactive (NONREACTIVE) 05/09/19 07:00 HIV 1&2 Antibody Screen Negative 05/09/19 07:00 HIV P24 Antigen Negative 05/09/19 07:00 lab noted uti begin bactrim ds Assessment: 05/10/19 16:36 alcohol withdrawal sx increase oral fluid Plan: continue alcohol detox uti bactrium ds bid
[2019-05-10] MEDS ORDERED: ONDANSETRON *ODT* 4 MG TABLET SL PRN (16:32)
[2019-05-10] MEDS: hydrOXYzine HCL 25 MG TABLET (FP) PO PRN ×2 (17:38→22:23)
[2019-05-10] MEDS: THIAMINE HCL 100 MG TABLET (FP) PO SCH (22:21)
[2019-05-10] MEDS: SULFAMETHOXAZOLE/TRIMETHOPRIM 800MG/160MG D.S. TABLET PO SCH (22:22)
[2019-05-10] MEDS: QUEtiapine FUMARATE 100 MG TABLET (FP) PO SCH (22:22)
[2019-05-10] MEDS: MELATONIN 5 MG TABLETS PO PRN (23:38)
[2019-05-11] MEDS ORDERED: LORazepam 0.5 MG TABLET PO PRN
[2019-05-11] MEDS ORDERED: chlordiazePOXIDE HCL 10 MG CAPSULE PO PRN
[2019-05-11] MEDS ORDERED: chlordiazePOXIDE HCL 10 MG CAPSULE PO SCH (05:00)
[2019-05-11] MEDS: LORazepam 0.5 MG TABLET PO SCH ×4 (06:08→22:28)
--- NOTE | 2019-05-11 10:25 | PN ---
[facility] CIWA - CIWA Score Nausea/Vomitin-No Nausea/No Vomiting Muscle Tremors: 3 Anxiety: 2 Agitation: 2 Paroxysmal Sweats: 1-Minimal Palms Moist Orientation: 0-Oriented Tacttile Disturbances: 1-Very Mild Itch/Numbness Auditory Disturbances: 0-None Visual Disturbances: 0-None Headache: 0-None Present CIWA-Ar Total Score: 9 S Progress Note (SOAP) Subjective: doing well with ativan detox regimen feeling better today discuss aftercare with staff prefers [facility] as alcohol recovery facility Objective: 05/11/19 10:26 Laboratory Last Values WBC 3.1 K/mm3 (4.0-10.0) L 05/09/19 07:00 RBC 3.89 M/mm3 (3.60-5.2) 05/09/19 07:00 Hgb 12.0 GM/dL (10.7-15.3) 05/09/19 07:00 Hct 35.9 % (32.4-45.2) 05/09/19 07:00 MCV 92.3 fl (80-96) 05/09/19 07:00 MCH 30.8 pg (25.7-33.7) 05/09/19 07:00 MCHC 33.4 g/dl (32.0-36.0) 05/09/19 07:00 RDW 12.6 % (11.6-15.6) 05/09/19 07:00 Plt Count 254 K/MM3 (134-434) 05/09/19 07:00 MPV 7.9 fl (7.5-11.1) 05/09/19 07:00 Sodium 138 mmol/L (136-145) 05/09/19 07:00 Potassium 4.2 mmol/L (3.5-5.1) 05/09/19 07:00 Chloride 102 mmol/L (98-107) 05/09/19 07:00 Carbon Dioxide 30 mmol/L (21-32) 05/09/19 07:00 Anion Gap 7 MMOL/L (8-16) L 05/09/19 07:00 BUN 11.0 mg/dL (7-18) 05/09/19 07:00 Creatinine 0.7 mg/dL (0.55-1.3) 05/09/19 07:00 Est GFR (CKD-EPI)AfAm 123.86 05/09/19 07:00 Est GFR (CKD-EPI)NonAf 106.87 05/09/19 07:00 Random Glucose 86 mg/dL (74-106) 05/09/19 07:00 Uric Acid 6.0 mg/dL (2.6-7.2) 05/09/19 07:00 Calcium 9.1 mg/dL (8.5-10.1) 05/09/19 07:00 Total Bilirubin 0.6 mg/dL (0.2-1) 05/09/19 07:00 AST 37 U/L (15-37) 05/09/19 07:00 ALT 19 U/L (13-61) 05/09/19 07:00 Alkaline Phosphatase 123 U/L (45-117) H 05/09/19 07:00 Total Protein 9.4 g/dl (6.4-8.2) H 05/09/19 07:00 Albumin 4.1 g/dl (3.4-5.0) 05/09/19 07:00 Urine Color Yellow 05/08/19 09:45 Urine Appearance Cloudy 05/08/19 09:45 Urine pH 5.0 (5.0-8.0) 05/08/19 09:45 Ur Specific [place] 1.012 (1.010-1.035) 05/08/19 09:45 Urine Protein Negative (NEGATIVE) 05/08/19 09:45 Urine Glucose (UA) Negative (NEGATIVE) 05/08/19 09:45 Urine Ketones Negative (NEGATIVE) 05/08/19 09:45 Urine Blood Negative (NEGATIVE) 05/08/19 09:45 Urine Nitrite Negative (NEGATIVE) 05/08/19 09:45 Urine Bilirubin Negative (NEGATIVE) 05/08/19 09:45 Urine Urobilinogen 0.2 mg/dL (0.2-1.0) 05/08/19 09:45 Ur Leukocyte Esterase Trace (NEGATIVE) 05/08/19 09:45 Urine WBC (Auto) 25 /hpf (0-5) 05/08/19 09:45 Urine RBC (Auto) 3.6 /hpf (0-4) 05/08/19 09:45 Urine Casts (Auto) 12 /lpf (0-8) 05/08/19 09:45 U Pathogenic Cast Auto None seen /lpf (NEGATIVE) 05/08/19 09:45 U Epithel Cells (Auto) 10.3 /HPF (0-5/HPF) 05/08/19 09:45 Urine Bacteria (Auto) 445.6 /hpf (NEGATIVE) 05/08/19 09:45 POC Urine HCG, Qual Negative 05/08/19 13:42 RPR Titer Nonreactive (NONREACTIVE) 05/09/19 07:00 HIV 1&2 Antibody Screen Negative 05/09/19 07:00 HIV P24 Antigen Negative 05/09/19 07:00 TB (QFT) Incubation (.) 05/09/19 07:00 TB Test (QFT) Nil 0.17 IU/mL (.) 05/09/19 07:00 TB Test (QFT) Mitogen >10.00 IU/mL (.) 05/09/19 07:00 TB Test (QFT) Antigen 0.17 IU/mL (.) 05/09/19 07:00 TB Test (QFT) Negative (Negative) 05/09/19 07:00 TB Positive Criteria (.) 05/09/19 07:00 Vital Signs Temperature 97.6 F 05/11/19 09:25 Pulse Rate 110 H 05/11/19 09:25 Respiratory Rate 20 05/11/19 09:25 Blood Pressure 135/97 05/11/19 09:25 O2 Sat by Pulse Oximetry (%) lab noted uti treated with bactrim ds patient tolerated well 05/11/19 10:27 Assessment: 05/11/19 10:28 mild alcohol withdrawal sx 05/11/19 10:28 Plan: continue alcohol detox
[2019-05-11] MEDS: PRENATAL VITAMINS W/ FOLIC ACID TABLET (FP) PO SCH (10:32)
[2019-05-11] MEDS: LISINOPRIL 10 MG TABLET (FP) PO SCH ×2 (10:32→22:28)
[2019-05-11] MEDS: PANTOPRAZOLE 20 MG TABLET (FP) PO SCH ×2 (10:32→22:27)
[2019-05-11] MEDS: cloNIDine HCL 0.1 MG TABLET PO SCH ×2 (10:32→22:28)
[2019-05-11] MEDS: SULFAMETHOXAZOLE/TRIMETHOPRIM 800MG/160MG D.S. TABLET PO SCH ×2 (10:32→22:28)
[2019-05-11] MEDS: amLODIPine BESYLATE 10 MG TABLET (FP) PO SCH (10:32)
[2019-05-11] MEDS: hydrOXYzine HCL 25 MG TABLET (FP) PO PRN ×2 (10:33→14:32)
[2019-05-11] MEDS: METHOCARBAMOL 500 MG TABLET PO PRN (10:34)
[2019-05-11] MEDS: NICOTINE POLACRILEX 2 MG GUM BUC PRN ×3 (12:44→19:19)
[2019-05-11] MEDS: THIAMINE HCL 100 MG TABLET (FP) PO SCH (22:26)
[2019-05-11] MEDS: ACETAMINOPHEN 325 MG TABLET (FP) PO PRN (22:26)
[2019-05-11] MEDS: QUEtiapine FUMARATE 100 MG TABLET (FP) PO SCH (22:27)
[2019-05-11] MEDS: MELATONIN 5 MG TABLETS PO PRN (22:28)
[2019-05-12] MEDS ORDERED: chlordiazePOXIDE HCL 10 MG CAPSULE PO SCH (05:00)
[2019-05-12] MEDS ORDERED: LORazepam 0.5 MG TABLET PO ONE (05:00)
[2019-05-12 06:36] VITALS: BP 111/78; PULSE 67; TEMP 97.1
--- NOTE | 2019-05-12 17:06 | DS ---
[facility] Detox Discharge Summary Admission Date: 05/08/19 Discharge Date: 05/12/19 - History Present History: Alcohol Dependence, Cannabis Dependence Additional Comments: PATIENT GOING TO [facility] ([place], [place]) FOR AFTERCARE. PATIENT WAS DISCHARGED FORM DETOX UNIT NI STABLE MEDICAL CONDITION. Pertinent Past History: HTN, History Of Anemia, Leukopenia, History Of Uterine Fibroids, Asthma, history Of gout, History T.B.I., History Of C.V.A., Anxiety, Insomnia, Bipolar Disorder, History Of Seizures (Related- To Alcohol Withdrawal), History Of Cirrhosis Of Liver, Bipolar Disorder, Schizophrenia, History Of Uterine Fibroids , Nicotine Dependence, History Of Mood Disorder. - Physical Exam Results Vital Signs: Vital Signs Temperature 97.1 F L 05/12/19 06:35 Pulse Rate 67 05/12/19 06:35 Respiratory Rate 16 05/12/19 06:35 Blood Pressure 111/78 05/12/19 06:35 O2 Sat by Pulse Oximetry (%) Pertinent Admission Physical Exam Findings: WITHDRAWAL SYMPTOMS. Laboratory Tests 05/08/19 05/08/19 05/09/19 09:45 13:42 07:00 WBC 3.1 L RBC 3.89 Hgb 12.0 Hct 35.9 MCV 92.3 MCH 30.8 MCHC 33.4 RDW 12.6 Plt Count 254 MPV 7.9 Sodium Potassium Chloride Carbon Dioxide Anion Gap BUN Creatinine Est GFR (CKD-EPI)AfAm Est GFR (CKD-EPI)NonAf Random Glucose Uric Acid Calcium Total Bilirubin AST ALT Alkaline Phosphatase Total Protein Albumin Urine Color Yellow Urine Appearance Cloudy Urine pH 5.0 Ur Specific [place] 1.012 Urine Protein Negative Urine Glucose (UA) Negative Urine Ketones Negative Urine Blood Negative Urine Nitrite Negative Urine Bilirubin Negative Urine Urobilinogen 0.2 Ur Leukocyte Esterase Trace Urine WBC (Auto) 25 Urine RBC (Auto) 3.6 Urine Casts (Auto) 12 U Pathogenic Cast Auto None seen U Epithel Cells (Auto) 10.3 Urine Bacteria (Auto) 445.6 POC Urine HCG, Qual Negative RPR Titer HIV 1&2 Antibody Screen HIV P24 Antigen TB (QFT) Incubation TB Test (QFT) Nil TB Test (QFT) Mitogen TB Test (QFT) Antigen TB Test (QFT) TB Positive Criteria 05/09/19 05/09/19 05/09/19 07:00 07:00 07:00 WBC RBC Hgb Hct MCV MCH MCHC RDW Plt Count MPV Sodium 138 Potassium 4.2 Chloride 102 Carbon Dioxide 30 Anion Gap 7 L BUN 11.0 Creatinine 0.7 Est GFR (CKD-EPI)AfAm 123.86 Est GFR (CKD-EPI)NonAf 106.87 Random Glucose 86 Uric Acid 6.0 Calcium 9.1 Total Bilirubin 0.6 AST 37 ALT 19 Alkaline Phosphatase 123 H Total Protein 9.4 H Albumin 4.1 Urine Color Urine Appearance Urine pH Ur Specific [place] Urine Protein Urine Glucose (UA) Urine Ketones Urine Blood Urine Nitrite Urine Bilirubin Urine Urobilinogen Ur Leukocyte Esterase Urine WBC (Auto) Urine RBC (Auto) Urine Casts (Auto) U Pathogenic Cast Auto U Epithel Cells (Auto) Urine Bacteria (Auto) POC Urine HCG, Qual RPR Titer Nonreactive HIV 1&2 Antibody Screen HIV P24 Antigen TB (QFT) Incubation TB Test (QFT) Nil 0.17 TB Test (QFT) Mitogen >10.00 TB Test (QFT) Antigen 0.17 TB Test (QFT) Negative TB Positive Criteria 05/09/19 07:00 WBC RBC Hgb Hct MCV MCH MCHC RDW Plt Count MPV Sodium Potassium Chloride Carbon Dioxide Anion Gap BUN Creatinine Est GFR (CKD-EPI)AfAm Est GFR (CKD-EPI)NonAf Random Glucose Uric Acid Calcium Total Bilirubin AST ALT Alkaline Phosphatase Total Protein Albumin Urine Color Urine Appearance Urine pH Ur Specific [place] Urine Protein Urine Glucose (UA) Urine Ketones Urine Blood Urine Nitrite Urine Bilirubin Urine Urobilinogen Ur Leukocyte Esterase Urine WBC (Auto) Urine RBC (Auto) Urine Casts (Auto) U Pathogenic Cast Auto U Epithel Cells (Auto) Urine Bacteria (Auto) POC Urine HCG, Qual RPR Titer HIV 1&2 Antibody Screen Negative HIV P24 Antigen Negative TB (QFT) Incubation TB Test (QFT) Nil TB Test (QFT) Mitogen TB Test (QFT) Antigen TB Test (QFT) TB Positive Criteria LABS NOTED. - Treatment Hospital Course: Detox Protocol Followed, Detoxed Safely, Responded well, Discharged Condition Good, Rehab Referral Accepted Patient has Accepted a Rehab Referral to: [facility] ([place], [place]). - Medication Discharge Medications: Ambulatory Orders Citalopram Hydrobromide [Celexa -] 20 mg PO DAILY 02/10/18 Quetiapine Fumarate [Seroquel] 300 mg PO DAILY 02/10/18 hydrOXYzine PAMOATE [Vistaril -] 25 mg PO DAILY 04/18/19 Clonidine HCl 0.2 mg PO BID 05/08/19 Albuterol Sulfate Inhaler - [Ventolin HFA Inhaler -] 2 inh PO Q4H PRN #1 inhaler 05/11/19 Amlodipine Besylate [Norvasc -] 10 mg PO DAILY #30 tablet 05/11/19 Lisinopril [Prinivil] 10 mg PO BID #60 tablet 05/11/19 Sulfamethoxazole/Trimethoprim [Bactrim DS -] 1 each PO BID #7 tablet 05/11/19 - Diagnosis (1) Alcohol dependence with uncomplicated withdrawal Status: Acute (2) Seizure disorder Status: Acute (3) Cannabis dependence Status: Chronic (4) HTN (hypertension) Status: Chronic Qualifiers: Hypertension type: essential hypertension Qualified Code(s): I10 - Essential (primary) hypertension (5) History of asthma Status: Chronic (6) History of hemoptysis Status: Chronic (7) History of uterine fibroid Status: Chronic (8) Mood disorder Status: Chronic (9) Nicotine dependence Status: Chronic Qualifiers: Nicotine product type: cigarettes Substance use status: in withdrawal Qualified Code(s): F17.213 - Nicotine dependence, cigarettes, with withdrawal (10) Schizophrenia Status: Chronic Qualifiers: Schizophrenia type: unspecified Qualified Code(s): F20.9 - Schizophrenia, unspecified (11) Schizophrenia Status: Suspected Qualifiers: Schizophrenia type: unspecified Qualified Code(s): F20.9 - Schizophrenia, unspecified - AMA Did Patient Leave Against Medical Advice: No
[2019-05-13] MEDS ORDERED: chlordiazePOXIDE HCL 10 MG CAPSULE PO ONE (05:00)
== END 2019-05-12 09:38 | disposition home or self-care (01) | DRG 775 ==
LOC: YASAS 11:11 → Y3N 17:52
PROVIDERS: ADMIT Surgery; ATTEND Surgery
PROC: HZ2ZZZZ Detoxification Services for Substance Abuse Treatment (ICD-10-PCS; principal; 2019-05-08)
DX: F10.230 Alcohol dependence with withdrawal, uncomplicated (principal); F12.20 Cannabis dependence, uncomplicated; F17.210 Nicotine dependence, cigarettes, uncomplicated; F39 Unspecified mood [affective] disorder; F20.9 Schizophrenia, unspecified; F31.9 Bipolar disorder, unspecified; F32.9 Major depressive disorder, single episode, unspecified; N39.0 Urinary tract infection, site not specified; D64.9 Anemia, unspecified; I10 Essential (primary) hypertension; J45.901 Unspecified asthma with (acute) exacerbation; M10.9 Gout, unspecified; G40.509 Epileptic seizures related to external causes, not intractable, without status epilepticus; Z86.73 Personal history of transient ischemic attack (TIA), and cerebral infarction without residual deficits; Z59.0 Homelessness
CPT/HCPCS: 36415; 80053; 81003; 81025; 84550; 85027; 86480; 86593; 87389; J0735; Q0162